=== PATIENT | female | born 1995 | race Caucasian/White ===

== ENCOUNTER 2021-09-27 01:04 | Emergency (ER) | payer OTHER, SELFPAY ==
[2021-09-27 01:10] VITALS: BP 117/74; PULSE 89; RESP 16; TEMP 36.7; O2SAT 97; BMI 28.5
--- NOTE | 2021-09-27 01:23 | ED.GENADULT ---
HPI - General Adult General Chief complaint: Vaginal Bleeding Stated complaint: bleeding vaginally positive preganancy test Time Seen by Provider: 09/27/21 01:10 History of Present Illness HPI narrative: Patient is a 26-year-old 3 para 2 woman who is 2 weeks late on her period. test at home today x2 was positive. She is current spotting Less than a pad an hour of red blood vaginally. She has minimal abdominal discomfort. She has had no vomiting no fevers. She has not passed any tissue. Bleeding has been present for the last several hours but very limited. Related Data Home Medications Medication Instructions Recorded Confirmed No Known Home Medications 09/27/21 09/27/21 Allergies Allergy/AdvReac Type Severity Reaction Status Date / Time hydrocodone AdvReac Mild Vomiting Verified 09/27/21 01:13 Review of Systems Status of ROS: Reports: 10 or more systems reviewed and unremarkable except as noted in History and below [facility] Medical History (Updated 09/27/21 @ 01:28 by Dave Coronel MD) Chronic anemia Depression TANNER (generalized anxiety disorder) Migraine Sacroiliac joint disease Surgical History (Updated 09/27/21 @ 01:15 by Jamison Springer RN) No significant past surgical history Social History Smoking Status: Current every day smoker What tobacco products do you use: cigarettes How often do you have a drink containing alcohol: never AUDIT-C Alcohol total score: 0 Non-prescribed substance use: denies use Exam Narrative: Exam Narrative: EXAM GENERAL: Patient appears comfortable and well. EYES: No scleral icterus. LYMPH: No supraclavicular or cervical lymphadenopathy. SKIN: Visible skin seen during exam normal or with benign process only. EXT: No dependent lower extremity pedal edema. HEART: Regular rate and rhythm with no murmurs, rubs, or gallops. LUNGS: Clear to auscultation bilaterally with no crackles or wheezes. ABD: Soft, non tender, non distended. PSYCH: Good eye contact, speech is not pressured. Const: Vital Signs, click to edit/add: Vital Signs - 24 hr 09/27/21 01:10 Temperature 98.1 F Pulse Rate [Right Pulse Oximeter] 89 Respiratory Rate 16 Blood Pressure [Ri ght Upper Arm] 117/74 Pulse Oximetry 97 Oxygen Delivery Me thod Room Air Course Course Hospital Course: Explained the nature of first-trimester vaginal bleeding. Vital Signs Vital signs: Initial Vital Signs Temperature 98.1 F 09/27/21 01:10 Temperature Source Temporal Artery Scan 09/27/21 01:10 Pulse Rate 89 09/27/21 01:10 Respiratory Rate 16 09/27/21 01:10 Blood Pressure 117/74 09/27/21 01:10 Blood Pressure Mean 88 09/27/21 01:10 Blood Pressure Position Sitting 09/27/21 01:10 Pulse Oximetry 97 09/27/21 01:10 Oxygen Delivery Method 09/27/21 01:10 Vital Signs Temperature 98.1 F 09/27/21 01:10 Pulse Rate 89 09/27/21 01:10 Respiratory Rate 16 09/27/21 01:10 Blood Pressure 117/74 09/27/21 01:10 Pulse Oximetry 97 09/27/21 01:10 Oxygen Delivery Method 09/27/21 01:10 Temperature 98.1 F 09/27/21 01:10 Pulse Rate 89 09/27/21 01:10 Respiratory Rate 16 09/27/21 01:10 Blood Pressure 117/74 09/27/21 01:10 Pulse Oximetry 97 09/27/21 01:10 Oxygen Delivery Method 09/27/21 01:10 Discharge Plan Discharge Clinical Impression: First trimester bleeding Patient Disposition: Home, Self-Care Condition: Stable Instructions: Non-Threatening First Trimester Vaginal Bleed (ED) Additional Instructions: vitamin Follow-up with OBGYN Return of believe becomes worse Activity Level: No Restrictions Discharge Diet: Regular Prescriptions: No Action No Known Home Medications Stand Alone Forms: [facility] Info Instructions
[2021-09-27 01:31] VITALS: BP 117/74; PULSE 89; RESP 16; TEMP 36.7; O2SAT 97
[2021-09-27 01:32] VITALS: BP 117/74; PULSE 89; RESP 16; TEMP 36.7
== END 2021-09-27 01:40 | disposition home or self-care (01) ==
LOC: ED 01:39
PROVIDERS: Emergency Provider Internal Medicine
DX: O20.9 Hemorrhage in early pregnancy, unspecified (principal)
CPT/HCPCS: 99283

== ENCOUNTER 2021-12-09 14:13 | Outpatient (CLI) | payer SELFPAY ==
[2021-12-09 18:15] LABS: HIV 1/2/P24 Combo Screen* Negative (Negative)
[2021-12-09 20:33] LABS: Amphetamine Screen Urine Negative (Negative); Barbiturate Screen Urine Negative (Negative); Benzodiazepines Screen Urine Negative (Negative); Cocaine Screen Urine Negative (Negative); Methadone Screen Urine Negative (Negative); Methamphetamines Screen Urine Negative (Negative); Opiate Screen Urine Negative (Negative); Oxycodone Screen Urine Negative (Negative); Phencyclidine Screen Urine Negative (Negative); Tricyclic Antidepressant Urine Negative (Negative)
[2021-12-09 20:41] LABS: Cannabinoid Screen Urine POSITIVE (Negative)
[2021-12-09 20:43] LABS: Hepatitis B Surface Antigen* Negative (Negative)
[2021-12-09 20:44] LABS: TSH With Reflex to FT4* 0.458 uIU/mL (0.270-4.200)
[2021-12-09 21:01] LABS: Hepatitis C Virus Antibody* Negative (Negative)
[2021-12-09 21:45] LABS: Chlamydia DNA Amplified* NOT DETECTED (No Detected); GC DNA Amplified* NOT DETECTED (No Detected)
[2021-12-12 00:54] LABS: Rapid Plasma Reagin (RPR) Non Reactive (Non Reactive)
[2021-12-12 03:04] LABS: Varicella-Zoster Virus Ab, IgG 32.3 IV
== END 2021-12-09 14:14 | disposition home or self-care (01) ==
PROVIDERS: Visit Provider Advanced Practice Midwife
DX: Z34.90 Encounter for supervision of normal pregnancy, unspecified, unspecified trimester (principal); Z12.4 Encounter for screening for malignant neoplasm of cervix; Z13.29 Encounter for screening for other suspected endocrine disorder
CPT/HCPCS: 76817; 80306; 84443; 86592; 86703; 86762; 86787; 86803; 86850; 86900; 86901; 87086; 87186; 87340; 87491; 87591; 87624; 88175

== ENCOUNTER 2022-01-06 15:27 | Outpatient (CLI) | payer SELFPAY | END 2022-01-06 15:28 | disposition home or self-care (01) | LOC: NFLDREF 15:28 | PROVIDERS: PCP Advanced Practice Midwife; Visit Provider Advanced Practice Midwife | DX: O23.42 Unspecified infection of urinary tract in pregnancy, second trimester (principal); Z3A.14 14 weeks gestation of pregnancy | CPT/HCPCS: 87077; 87086; 87186 ==

== ENCOUNTER 2022-02-17 13:44 | Outpatient (CLI) | payer SELFPAY ==
--- NOTE | 2022-02-17 14:00 | CRLHL7_ITS ---
For Patients: As a result of the Century Cures Act, medical imaging exams and procedure reports are released immediately into your electronic medical record. You may view this report before your referring provider. If you have questions, please contact your health care provider. INDICATION: Evaluate anatomy. COMPARISON: 12/09/2021 TECHNIQUE: Real time pandya scale imaging of the fetus was performed as well as color Doppler analysis of the umbilical vessels. FINDINGS: Sonographic imaging demonstrates a single living intrauterine gestation. Fetus demonstrates a regular cardiac rate of 152 beats per minute. Fetus has a vertex position. The placenta lies posteriorly without evidence of placenta previa. The edge of the placenta is located 6.1 cm from the internal cervical os. Amniotic fluid volume appears normal. Single deepest vertical pocket: 2.8 cm. The cervix is closed and measures 3.9 cm in length. The composite ultrasound gestational age is calculated at 20 weeks 4 days with an estimated sonographic due date of 07/03/2022. The estimated weight is 397 grams which lies at the 86th %. The following biometric measurements were obtained: Biparietal diameter: 4.7 cm/20 weeks 1 day 45th% Head circumference: 17.2 cm/19 weeks 6 days 21st% Abdominal circumference: 16.5 cm/21 weeks 4 days 83rd% Femur length: 3.5 cm/20 weeks 6 days 64th% The HC/AC ratio measures: 1.04 range (1.07-1.25) On anatomic survey, there is incomplete visualization of the brain structures due to position. The nose, lips, and facial profile appear normal. The thoracic and lumbar spine are well visualized and appear normal. Incomplete visualization of the cervical spine due to position. There is a normal four-chamber heart view and the left and right ventricular outflow tracts appear normal. The diaphragm and stomach appear normal. The kidneys and bladder also appear normal. There is a normal three-vessel cord and cord insertion site. The four extremities appear normal. IMPRESSION: Concordance of clinical and sonographic dating. Incomplete visualization of the brain structures and cervical spine due to position. Remainder of the anatomic survey is normal. Short-term follow-up recommended. Dictated by Jesus Stafford MD @ 02/18/2022 12:44:27 PM (Electronically Signed)
== END 2022-02-17 13:45 | disposition home or self-care (01) ==
LOC: US 13:46
PROVIDERS: PCP Advanced Practice Midwife; Visit Provider Advanced Practice Midwife
DX: Z34.82 Encounter for supervision of other normal pregnancy, second trimester (principal); Z3A.20 20 weeks gestation of pregnancy
CPT/HCPCS: 76805

== ENCOUNTER 2022-02-17 15:11 | Outpatient (CLI) | payer SELFPAY | END 2022-02-17 15:12 | disposition home or self-care (01) | PROVIDERS: PCP Advanced Practice Midwife; Visit Provider Advanced Practice Midwife | DX: R30.9 Painful micturition, unspecified (principal) | CPT/HCPCS: 87086; 87186 ==

== ENCOUNTER 2022-03-18 08:22 | Outpatient (CLI) | payer OTHER, SELFPAY ==
--- NOTE | 2022-03-18 08:15 | CRLHL7_ITS ---
For Patients: As a result of the Century Cures Act, medical imaging exams and procedure reports are released immediately into your electronic medical record. You may view this report before your referring provider. If you have questions, please contact your health care provider. INDICATION: Follow up anatomic survey. A previous ultrasound February 17, 2022 did not clearly demonstrate the intracranial structures or cervical spine. TECHNIQUE: Transabdominal obstetrical ultrasound. COMPARISON: February 17, 2022. FINDINGS: Single living intrauterine in vertex presentation. Posterior placenta. heart rate 142 beats per minute. Normal amniotic fluid. Single deepest pocket measurement 5.5 cm. The intracranial structures are within normal limits. The cervical spine is unremarkable. The four-chamber heart view is well demonstrated. A lateral facial profile view is within normal limits. IMPRESSION: Completion of the anatomic survey. No abnormalities identified. Dictated by Tigre Murray MD @ 03/18/2022 9:29:57 AM (Electronically Signed)
== END 2022-03-18 08:23 | disposition home or self-care (01) ==
LOC: US 08:24
PROVIDERS: PCP Advanced Practice Midwife; Visit Provider Advanced Practice Midwife
DX: Z34.92 Encounter for supervision of normal pregnancy, unspecified, second trimester (principal); Z3A.24 24 weeks gestation of pregnancy
CPT/HCPCS: 76816

== ENCOUNTER 2022-03-22 14:07 | Emergency (ER) | payer OTHER, SELFPAY ==
[2022-03-22 14:18] VITALS: BP 116/74; PULSE 83; RESP 16; TEMP 36.6; O2SAT 95; BMI 31.6
--- NOTE | 2022-03-22 14:45 | ED.NURSE ---
OB RN in room assessing pt and placing pt on monitoring.
--- NOTE | 2022-03-22 15:04 | ED.LOWEXIN ---
HPI - Extremity Injury (Lower) General Date Seen: 03/22/22 Chief Complaint: Extremity Pain/Injury, Lower Stated Complaint: Raised spot on right leg Time Seen by Provider: 03/22/22 14:11 Source: patient Mode of arrival: ambulatory Limitations: no limitations History of Present Illness HPI Narrative: Patient is 26-year-old female who is , she presents here with painful swelling on her right leg, on the manrique, just distal to her knee. She has been treated for UTI on and off, currently on Macrobid, is worried about a blood clot, so that is why she is here today. Denies a sore throat, no history of TB, no history of any other viral etiology, has not been on penicillin as far she knows recently. Denies any shortness of breath, denies any wheezing, denies any nausea vomiting diarrhea, she is having some discharge, although she tells me this is been a chronic problem with her . She continues to smoke during this , does use occasional alcohol. Related Data Previous Rx's Medication Instructions Recorded nitrofurantoin macrocrystal 50 mg 50 mg PO .HS #60 caps 02/17/22 capsule Lactobacillus acidophilus 1.5 mg 100 mmu cells PO QDAY #90 caps 03/18/22 (250 million cell) capsule Allergies Allergy/AdvReac Type Severity Reaction Status Date / Time hydrocodone AdvReac Mild Vomiting Verified 03/22/22 14:23 Review of Systems Status of ROS: Reports: 10 or more systems reviewed and unremarkable except as noted in History and below PFSH PFSH Medical History Depression TANNER (generalized anxiety disorder) History of hyperthyroidism Migraine Sacroiliac joint disease Teeth decayed Surgical History History of ankle surgery [place] teeth extracted Family History Father High blood pressure Stroke, Onset Age: 42 Mother High blood pressure Diabetes Thyroid disease Social History Smoking Status: Current every day smoker What tobacco products do you use: cigarettes Smoking packs per day: 0.5 Smoking cigarettes per day: 10.0 Years smoked: 10 Smoking pack-years: 5.00 Do you use any of these nicotine containing products: None Second hand tobacco smoke exposure: No How often do you have a drink containing alcohol: monthly or less AUDIT-C Alcohol total score: 1 Non-prescribed substance use details: Stopped Marijuana usage in November Little interest or pleasure in doing things: more than half the days Feeling down, depressed, or hopeless: several days Exam Narrative: Exam Narrative: On examination just below her right knee is an area of very slight redness and probably silver dollar size, on the upper part of her right manrique, consistent erythema nodusum, no swelling of her calf, no distal edema, no other symptoms. Pulses are normal neurologically intact.. Const: Vital Signs, click to edit/add: Vital Signs - 24 hr 03/22/22 14:18 Temperature 97.8 F Pulse Rate [Pulse Oximeter] 83 Respiratory Rate 16 Blood Pressure [Ri ght Upper Arm] 116/74 Pulse Oximetry 95 Oxygen Delivery Me thod Room Air Course Vital Signs Vital signs: Initial Vital Signs Temperature 97.8 F 03/22/22 14:18 Temperature Source Temporal Artery Scan 03/22/22 14:18 Pulse Rate 83 03/22/22 14:18 Respiratory Rate 16 03/22/22 14:18 Blood Pressure 116/74 03/22/22 14:18 Blood Pressure Mean 88 03/22/22 14:18 Blood Pressure Position Supine 03/22/22 14:18 Pulse Oximetry 95 03/22/22 14:18 Oxygen Delivery Method 03/22/22 14:18 Vital Signs Temperature 97.8 F 03/22/22 14:18 Pulse Rate 83 03/22/22 14:18 Respiratory Rate 16 03/22/22 14:18 Blood Pressure 116/74 03/22/22 14:18 Pulse Oximetry 95 03/22/22 14:18 Oxygen Delivery Method 03/22/22 14:18 Temperature 97.8 F 03/22/22 14:18 Pulse Rate 83 03/22/22 14:18 Respiratory Rate 16 03/22/22 14:18 Blood Pressure 116/74 03/22/22 14:18 Pulse Oximetry 95 03/22/22 14:18 Oxygen Delivery Method 03/22/22 14:18 MDM - Extremity Injury (Lower) MDM Narrative Medical decision making narrative: During this evaluation I considered multiple diagnosis, including DVT, superficial thrombophlebitis, cellulitis, eczema, HSP, varicella , among other causes of rashes. Medical Records Attestation: I reviewed the patient's medical records. Lab Data Attestation: I reviewed the patient's lab results. Lab results narrative: We will do a COVID swab, influenza, RSV and call her if positive Discharge Plan Discharge Clinical Impression: Erythema nodosum Patient Disposition: Home w/ Parent or Adult Condition: Stable Additional Instructions: Multiple reasons you can have this including recent UTI, and the medications that she take for UTI, bottom line is it is a hypersensitivity reaction, and improves with time. It is not a blood clot. Fits due to then he would usually persist throughout . That is unfortunate. A little Tylenol will help this, or follow-up with primary care for their options. I do recommend that she stop smoking, during . Avoidance of alcohol is also suggested We will call you if COVID test is positive. Prescriptions: No Action Probiotic Acidophilus 1.5 mg (250 million cell) capsule 100 mmu cells PO QDAY Qty: 90 3RF Hold Instructions: Pt Not Taking nitrofurantoin macrocrystal 50 mg capsule 50 mg PO .HS Qty: 60 1RF Rx Instructions: must administer with a meal/food; Start after completing 7 day course. Take before bed Follow Up/Referrals: Earline Tompkins CNM [Certified Nurse Community Assistant] - Stand Alone Forms: [facility] Info Instructions
[2022-03-22 15:35] LABS: PCR FLU A Negative PCR FLU A (Negative); PCR FLU B Negative PCR FLU B (Negative); PCR RSV Negative PCR RSV (Negative)
[2022-03-22 15:40] LABS: SARS PCR* Negative SARS-CoV-2 (Negative)
--- NOTE | 2022-03-22 15:46 | ED.NURSE ---
OB RN obtaining wet prep and brought to lab.
[2022-03-22 16:07] LABS: Clue Cells No Clue Cells Seen (None Seen); Trichomonas No Trichomonas Seen (None Seen)
[2022-03-22 16:08] LABS: Yeast Yeast Seen (None Seen)
--- NOTE | 2022-03-22 18:16 | ED.NURSE ---
Pt admits to drinking socially at this time. MD and OB RN updated.
== END 2022-03-22 15:47 | disposition home or self-care (01) ==
LOC: ED 15:02
PROVIDERS: Emergency Provider Family Medicine
DX: L52 Erythema nodosum (principal)
CPT/HCPCS: 87210; 87502; 87634; 87635; 99282; 99283

== ENCOUNTER 2022-04-17 13:56 | Outpatient (CLI) | payer OTHER, SELFPAY ==
[2022-04-19 09:58] LABS: Rapid Plasma Reagin (RPR) Non Reactive (Non Reactive)
== END 2022-04-17 13:57 | disposition home or self-care (01) ==
LOC: NFLDREF 13:56
PROVIDERS: Visit Provider Advanced Practice Midwife
DX: Z34.93 Encounter for supervision of normal pregnancy, unspecified, third trimester (principal); Z3A.28 28 weeks gestation of pregnancy
CPT/HCPCS: 86592

== ENCOUNTER 2022-05-28 14:45 | Outpatient (RCR) | payer OTHER, SELFPAY | END 2022-08-06 09:16 | disposition home or self-care (01) | PROVIDERS: PCP Advanced Practice Midwife; Visit Provider Advanced Practice Midwife | DX: Z34.90 Encounter for supervision of normal pregnancy, unspecified, unspecified trimester (principal); M54.30 Sciatica, unspecified side; Z51.89 Encounter for other specified aftercare | CPT/HCPCS: 97110; 97140; 97162 ==

== ENCOUNTER 2022-06-09 22:45 | Outpatient (CLI) | payer OTHER, SELFPAY ==
[2022-06-09 22:59] VITALS: BP 132/82; PULSE 85; RESP 20; TEMP 36.6; O2SAT 97
[2022-06-10 00:23] LABS: Appearance Urine Slightly Cloudy (Clear); Bilirubin Urine Negative (Negative); Blood Urine Trace-lysed (Negative); Color Urine Yellow (Yellow); Glucose Urine Negative (Negative); Ketones Urine Negative (Negative); Leukocyte Esterase Urine 2+ (Negative); Nitrite Urine Negative (Negative); Protein Urine Negative (Negative); Urobilinogen Urine 0.2 (0.2-1.0); pH Urine 6.5 (5.0-8.5)
[2022-06-10 00:41] LABS: Bacteria Urine Many; Squamous Epithelial Cell Urine Moderate (None-Few)
[2022-06-10 00:42] LABS: Amorphous Sediment Urine Few
--- NOTE | 2022-06-10 02:08 | PC.OBNST ---
NST Note NST Note Start: 06/09/22 22:52 Freq: ONCE Status: Active Protocol: Document 06/09/22 22:52 ARB (Rec: 06/10/22 01:49 ARB [id number]) NST Note 3 Para (# of births) 2 EDC 07/05/22 Gestational Age In Weeks & Days 36 Weeks & 3 Days Patient Presented with Complaint(s) of Decreased movement,Other Other Complaints diarrhea Reactive Yes Appropriate for Gestational Age Yes REAGAN Rivers, RN Date 06/10/22 Reactive Yes Appropriate for Gestational Age Yes REAGAN Sharma, RN Date 06/10/22 OB NST charge Yes Complete NST Note via Write Note Yes The provider's electronic signature indicates the NST is reactive/appropriate for gestational age. *Note to provider: If an addendum is required, open the patient's chart and click on the note under the Nurse/Allied Health tab.
--- NOTE | 2022-06-10 02:24 | PC.OBNST ---
NST Note NST Note Start: 06/09/22 22:52 Freq: ONCE Status: Active Protocol: Document 06/09/22 22:52 ARB (Rec: 06/10/22 01:49 ARB [id number]) NST Note 3 Para (# of births) 2 EDC 07/05/22 Gestational Age In Weeks & Days 36 Weeks & 3 Days Patient Presented with Complaint(s) of Decreased movement,Other Other Complaints diarrhea Reactive Yes Appropriate for Gestational Age Yes REAGAN Rivers, RN Date 06/10/22 Reactive Yes Appropriate for Gestational Age Yes REAGAN Sharma, RN Date 06/10/22 OB NST charge Yes Complete NST Note via Write Note Yes The provider's electronic signature indicates the NST is reactive/appropriate for gestational age. *Note to provider: If an addendum is required, open the patient's chart and click on the note under the Nurse/Allied Health tab.
== END 2022-06-10 01:30 | disposition home or self-care (01) ==
LOC: OB OUT 22:47 → OB 22:48
PROVIDERS: PCP Advanced Practice Midwife; Visit Provider Advanced Practice Midwife
DX: O36.8130 Decreased fetal movements, third trimester, not applicable or unspecified (principal); Z3A.36 36 weeks gestation of pregnancy
CPT/HCPCS: 59025; 81003; 81015; 87086; 87186; 99213

== ENCOUNTER 2022-06-12 10:42 | Outpatient (CLI) | payer OTHER, SELFPAY | END 2022-06-12 10:43 | disposition home or self-care (01) | LOC: NFLDREF 10:43 | PROVIDERS: PCP Advanced Practice Midwife; Visit Provider Advanced Practice Midwife | DX: Z34.93 Encounter for supervision of normal pregnancy, unspecified, third trimester (principal); Z3A.36 36 weeks gestation of pregnancy | CPT/HCPCS: 80306 ==

== ENCOUNTER 2022-06-19 12:48 | Outpatient (CLI) | payer OTHER, SELFPAY ==
--- NOTE | 2022-06-19 13:00 | CRLHL7_ITS ---
For Patients: As a result of the Cures Act, medical imaging exams and procedure reports are released immediately into your electronic medical record. You may view this report before your referring provider. If you have questions, please contact your health care provider. INDICATION: female measuring large for dates. Ultrasound for size/dates. TECHNIQUE: Transabdominal obstetrical ultrasound. COMPARISON: February 17, 2022. FINDINGS: Single living intrauterine in breech presentation. Posterior placenta. heart rate 134 beats per minute. Amniotic fluid volume is slightly increased. Single deepest pocket measurement 9.3 cm. Amniotic fluid volume index 23.1 cm. Biparietal diameter 9.5 cm, 39 weeks 0 days, 92nd percentile. Head circumference 34.1 cm, 39 weeks 2 days, 67th percentile. Abdominal circumference 38 cm, 42 weeks 0 days, greater than the 97th percentile. Femur length 7.7 cm, 39 weeks 1 day, 85th percentile. Composite calculated ultrasound age 39 weeks 6 days with a sonographic due date of June 20, 2022. This is advanced by 15 days when correlated with the age based on the last menstrual period provided. Estimated weight 4164 g which lies at the greater than 97th percentile. IMPRESSION: 1. Single living intrauterine in vertex presentation. Posterior placenta. 2. Composite calculated ultrasound age 39 weeks 6 days with a sonographic due date of June 20, 2022. This is advanced by 15 days when correlated with the age based on the last menstrual period provided. 3. Mild polyhydramnios. Single deepest pocket measurement 9.3 cm. 4. Estimated weight 4164 g which lies at the greater than 97th percentile. Dictated by Tigre Murray MD @ 06/19/2022 4:10:34 PM (Electronically Signed)
== END 2022-06-19 12:49 | disposition home or self-care (01) ==
LOC: US 12:49
PROVIDERS: PCP Advanced Practice Midwife; Visit Provider Advanced Practice Midwife
DX: O36.63X0 Maternal care for excessive fetal growth, third trimester, not applicable or unspecified (principal); Z3A.39 39 weeks gestation of pregnancy
CPT/HCPCS: 76816

== ENCOUNTER 2022-06-26 08:14 | Outpatient (CLI) | payer OTHER, SELFPAY ==
--- NOTE | 2022-06-26 08:15 | CRLHL7_ITS ---
For Patients: As a result of the Century Cures Act, medical imaging exams and procedure reports are released immediately into your electronic medical record. You may view this report before your referring provider. If you have questions, please contact your health care provider. INDICATION: Polyhydramnios COMPARISON: 06/19/2022 TECHNIQUE: Real time pandya scale imaging of the fetus was performed. Without non-stress testing. FINDINGS: Sonographic imaging demonstrates a single living intrauterine gestation. Fetus demonstrates a regular cardiac rate of 137 beats per minute. Fetus has a vertex position. The amniotic fluid volume appears upper limits of normal and there is a single deepest pocket measurement of 8.4 cm. ALEXANDER 23.4 cm. The fetus was active and demonstrated normal breathing movements. There was normal flexion and extension of the trunk and extremities. IMPRESSION: Normal biophysical profile score of 8 out of 8. Dictated by Jesus Stafford MD @ 06/26/2022 11:10:18 AM (Electronically Signed)
== END 2022-06-26 08:15 | disposition home or self-care (01) ==
LOC: US 08:15
PROVIDERS: PCP Advanced Practice Midwife; Visit Provider Advanced Practice Midwife
DX: O40.9XX0 Polyhydramnios, unspecified trimester, not applicable or unspecified (principal)
CPT/HCPCS: 76819

== ENCOUNTER 2022-06-29 07:03 | Inpatient (IN) | payer OTHER, SELFPAY ==
[2022-06-29] VITALS (16 sets, daily range): BP systolic 102–114; BP diastolic 63–79; PULSE 72–99; RESP 16–20; TEMP 36.6–37.4; O2SAT 96–97; BMI 36.8
[2022-06-29] MEDS: miSOPROStoL 25 MCG/0.25 TABLET VAGINAL ×2 (08:15→12:05)
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
[2022-06-29 08:40] LABS: Amphetamine Screen Urine Negative (Negative); Barbiturate Screen Urine Negative (Negative); Benzodiazepines Screen Urine Negative (Negative); Cannabinoid Screen Urine Negative (Negative); Cocaine Screen Urine Negative (Negative); Methadone Screen Urine Negative (Negative); Methamphetamines Screen Urine Negative (Negative); Opiate Screen Urine Negative (Negative); Oxycodone Screen Urine Negative (Negative); Phencyclidine Screen Urine Negative (Negative); Tricyclic Antidepressant Urine Negative (Negative)
[2022-06-29] MEDS: AMPICILLIN 2 GM in 0.9 % SODIUM CHLORIDE Mini-bag 100 ML IVPB (08:57)
[2022-06-29] MEDS: LACTATED RINGERS 1000 ML 1,000 ML 125 ML IV (08:59)
[2022-06-29 09:12] LABS: Basophils Absolute Auto 0.04 K/uL (0.00-0.30); Basophils Percent Auto 0.4 % (0.0-3.0); Eosinophils Absolute Auto 0.15 K/uL (0.00-0.50); Eosinophils Percent Auto 1.4 % (0.0-7.0); Hematocrit 32.2 % (33.0-51.0); Hemoglobin* 10.4 gm/dL (12.0-16.0); Immature Granulocytes Abs Auto 0.17 K/uL (0.00-0.30); Immature Granulocytes Pct Auto 1.6 %; Lymphocytes Percent Auto 17.7 % (20-44); Mean Corpuscular HGB Conc 32 gm/dL (32-36); Mean Corpuscular Hemoglobin 27 pg (26-34); Mean Corpuscular Volume 83 fL (80-100); Monocytes Percent Auto 6.3 % (0.0-11.0); Neutrophils Percent Auto 72.6 % (42.0-72.0); Platelet Count* 332 K/uL (140-440); RDW Coefficient of Variation % 14.5 % (11.5-15.5); Red Blood Count 3.87 m/uL (4.00-5.20); White Blood Count* 10.59 K/uL (4.50-11.00)
[2022-06-29 09:13] LABS: Slide Review Reflex No
[2022-06-29] MEDS: AMPICILLIN 1 GM in 0.9 % SODIUM CHLORIDE Mini-bag 100 ML IVPB (12:53)
--- NOTE | 2022-06-29 15:43 | P.OBPN_ITS ---
Subjective Date Seen: 06/29/22 Narrative: Thelma is a 27 yo at 39 1/7 weeks gestation, here for IOL for mild polyhydramnios based on SDP and suspected macrosomia. She is coping well with labor. She has had 2 doses of cytotec. She reports pain of 8/10 with contractions. Objective Exam: Objective: Constitutional: Alert and oriented x3, moderate distress, coping well Vital signs stable, see nurse documentation Abdomen: gravid, contractions palpate strong with contractions and soft between Cervix: 6-7 cm/90%/0 station/vertex Vital Signs: Last Vital Signs Temp 98.3 F 06/29/22 14:47 Pulse 91 06/29/22 15:40 Resp 18 06/29/22 14:47 BP 114/75 06/29/22 15:40 Pulse Ox 97 06/29/22 11:30 Pelvic Exam Dilation (cm): 6-7 Effacement (%): 90 Station: 0 Contractions Monitor mode: External Contraction Frequency: 2-7 Contraction pattern: Regular Contraction intensity: Strong/Firm Assessment Assessment: active labor Station: 0 Status: Category l Heart Rate Baseline: 145 Senior Care Variability: Moderate (6-25) Monitor Accelerations: Present Monitor Decelerations: None Plan Plan: ASSESSMENT:? 27 at 39 1/7 weeks gestation? complicated by:?Recurrent UTI on suppression antibiotics, THC use during (neg in 3rd trimester), varicella non immune, Significant mental health hx (anxiety, depression, PTSD), Migraines w/ Aura, Anemia, measuring large for dates, mild polyhydramnios based of SDP Labor type: Induced, Active labor? Category 1 FHR pattern.?? Labor complicated by: GBS +, hx of precipitous, mild poly? GBS negative? ? PLAN:? 1. Routine intrapartum cares as ordered. 2 doses of cytotec, continue with exp ectant management. 2. Monitoring per policy, continuous? 3. Planning unmedicated . Desires water . Consent signed. Hep C negative. Candidate for analgesia of choice if desired. UDS neg in 3rd trimester. 4. Patient encouraged to reposition and ambulate to promote physiologic labor and .?Baby is ballotable, recommended spinning babies and labor warm up to engage fetus in pelvis. 5. GBS prophylaxis initiated for GBS positive status. Will treat with antibiotics per protocol. Plan to start with onset of induction due to hx of precipitous labor. 6. Anticipate ?
[2022-06-29] MEDS: OXYTOCIN 30 unit/500 ML in NS 30 UNIT/500 ML BAG 300 UNIT IVPB (17:03)
[2022-06-29] MEDS: ACETAMINOPHEN 500 MG TABLET 1000 MG PO (17:18)
--- NOTE | 2022-06-29 18:13 | W.PM.OBVAGDE ---
OB Procedure Vag Delivery Mother Details Mother Details: The patient is a 27 year-old, 3, Para 2, admitted on 06/29/22 at 39 1/7 Days gestation for induction of labor for polyhydramnios based on SDP with normal ALEXANDER and suspected macrosomia. : 3 Para: 3 Weeks Gestation: 39.1 Additional Details Amniotic Membrane Status: SROM Amniotic Membrane Rupture Date: 06/29/22 Amniotic Membrane Rupture Time: 16:43 Amniotic Membrane Fluid Description: Clear Analgesia/Anesthesia Type: None Waterbirth: Yes Pitcoin: Yes ([facility] only) Intrapartal Events: Precipitous Labor <3 Hrs Induction Method: per misoprostol protocol Labor Onset: 15:29 Complete: 16:22 Pushin:22 Heart: heart rate remained reassuring throughout the 2nd stage, with moderate variability and accelerations present but unable to determine if decelerations were present due to non-continuous tracing related to pushing. Delivery Details Delivery Date: 06/29/22 Delivery Time: 16:48 Route of delivery: Gender: Female Viability: Alive; Heart Rate Present Position at Delivery: OA Delivery Details: Thelma was induced with two doses of labor then spontaneously labored. She progressed precipitously in active labor. SROM noted in the tub with pushing at 1643 with clear fluid. Patient was assumed complete with pushing at 1622. of a viable female at 1648 in semi-fowlers in the tub. Vertex delivered OA. No nuchal cord or shoulder. After delivery of head, maternal pushing effort was poor. CNM felt for shoulder which was easily palpated and was able to place her hand in the axillary of the anterior arm. Mother was instructed to push while CNM assisted with gentle traction with little movement. With CNM instruction, nurses assisted pulling mom's legs back into [place] and mother was instructed to push. This time with gentle traction delivery of the body was made. Total time from head to body was about 2 minutes, body dystocia likely due to poor maternal pushing effort and position. Baby was lifted from water and placed on mothers abdomen and stimulated. Cord was clamped and cut at > 5 minutes. APGARS were 7 at one minute and 8 at five minutes respectively. Mom was transferred from the tub to the bed for delivery of the placenta. Intact placenta with a 3 vessel cord delivered spontaneously at 1713. Fundus firm. 1st degree identified, no repair. QBL 325 cc + EBL 200 cc in the tub. Mother and baby stable; mother plans to breastfeed. Infant weight 10 lb 7 oz. Monitoring Analyst called after delivery to assess , small open area noted on the back of the scalp. Additional Details Shoulder Dystocia: No Placenta Delivery Time: 17:13 Placental Delivery Description: Spontaneous Procedure Done: Global Blood Loss: 525 Laceration: Perineal - 1st Degree (not repaired) Blood Loss Measurement Type: QBL (w/ EBL in tub) Bakri Used: No Cord Vessel Description: 3 Vessels Event Summary Status: Mother and were stable after delivery. Disposition: floor
[2022-06-29] MEDS: miSOPROStoL 800 MCG/4 TABLET PR (19:25)
[2022-06-29] MEDS: METHYLERGONOVINE MALEATE 0.2 MG/ML INJ IM (19:53)
[2022-06-29] MEDS: IBUPROFEN 600 MG TABLET PO (20:36)
[2022-06-30 02:05] VITALS: BP 104/72; PULSE 80; RESP 16; TEMP 36.7; O2SAT 96
[2022-06-30] MEDS: IBUPROFEN 600 MG TABLET PO ×3 (02:24→22:46)
[2022-06-30 05:34] VITALS: BP 108/74; PULSE 74; RESP 16; TEMP 36.6; O2SAT 96
[2022-06-30] MEDS: ACETAMINOPHEN 500 MG TABLET 1000 MG PO ×4 (05:41→18:47)
[2022-06-30 07:24] VITALS: BP 101/68; PULSE 76; RESP 16; TEMP 36.6; O2SAT 96
[2022-06-30 07:39] LABS: Hemoglobin* 9.2 gm/dL (12.0-16.0)
--- NOTE | 2022-06-30 07:44 | PM.OBDSVD1 ---
DS: Providers Provider Time Seen by Provider: 07:44 Date Seen: 06/30/22 Date of admission: 06/29/22 07:03 Primary care physician: Dee Gould CNM Admitting Clinician: Dee Gould CNM Consults: 06/29/22 08:23 Consult to Gear Machinist [CONS] Routine Comment: Reason for Consult:: Substance Abuse Screening Attending Physician on discharge: Dee Gould CNM Date of Discharge: 06/30/22 DS: Diagnosis Discharge Diagnosis (1) Normal spontaneous vaginal delivery: Status: Acute (2) hemorrhage: Status: Acute Problem details: QBL/EBL 1265 (3) Anemia affecting : Status: Acute (4) Lactating mother: Status: Acute Exam Narrative: Exam Narrative: VSS, afebrile GENERAL APPEARANCE: ?normal affect, alert, no distress MOOD: ?appropriate HEENT: normocephalic, neck supple, full ROM CHEST: ?Symmetrical chest wall movement. ?Normal respiratory effort. ?Clear to auscultation HEART: ?regular rate and rhythm ABDOMEN: ?soft, non-tender. Uterine fundus is firm, 1 fingerbreadth above Umbilicus, Midline and is appropriate for the stage of recovery. ?Bowel sounds present. PERINEUM: ?mild edema of the perineum, there is a 1st degree laceration that is healing well. EXTREMITIES: ?normal and trace edema Const: Vital Signs, click to edit/add: Vital Signs - 24 hr 06/29/22 08:13 06/29/22 08:13 06/29/22 11:30 Temperature 98.6 F Pulse Rate 92 Pulse Rate [Pulse Oximeter] Respiratory Rate 16 Blood Pressure 108/72 Blood Pressure [Le ft Arm] Pulse Oximetry 97 Oxygen Delivery Me thod 06/29/22 12:03 06/29/22 12:03 06/29/22 14:47 Temperature 98.4 F 98.3 F Pulse Rate 98 Pulse Rate [Pulse Oximeter] Respiratory Rate 16 18 Blood Pressure 105/72 Blood Pressure [Le ft Arm] Pulse Oximetry Oxygen Delivery Me thod 06/29/22 15:40 06/29/22 15:40 06/29/22 17:17 Temperature 98.3 F Pulse Rate 91 80 Pulse Rate [Pulse Oximeter] Respiratory Rate 20 Blood Pressure 114/75 110/79 Blood Pressure [Le ft Arm] Pulse Oximetry Oxygen Delivery Me thod 06/29/22 17:32 06/29/22 17:32 06/29/22 17:47 Temperature 97.8 F Pulse Rate 78 78 Pulse Rate [Pulse Oximeter] Respiratory Rate 18 Blood Pressure 104/74 106/75 Blood Pressure [Le ft Arm] Pulse Oximetry Oxygen Delivery Me thod 06/29/22 17:47 06/29/22 18:02 06/29/22 18:17 Temperature 98.6 F Pulse Rate 80 72 Pulse Rate [Pulse Oximeter] Respiratory Rate 18 Blood Pressure 107/65 102/63 Blood Pressure [Le ft Arm] Pulse Oximetry Oxygen Delivery Fl thod 06/29/22 18:32 06/29/22 18:47 06/29/22 18:47 Temperature 98.9 F Pulse Rate 73 76 Pulse Rate [Pulse Oximeter] Respiratory Rate Blood Pressure 108/76 107/72 Blood Pressure [Le ft Arm] P[facility]:02 06/29/22 19:02 06/29/22 20:58 Temperature 98.9 F Pulse Rate 75 79 Pulse Rate [Pulse Oximeter] Respiratory Rate 18 Blood Pressure 107/69 110/73 Blood Pressure [Le ft Arm] Pulse Oximetry 97 [facility] 22:41 06/30/22 02:05 06/30/22 05:34 Temperature 98.6 F 98.1 F 97.9 F Pulse Rate Pulse Rate [Pulse Oximeter] 86 80 74 Respiratory Rate 16 16 16 Blood Pressure Blood Pressure [Le ft Arm] 113/78 104/72 108/74 Pulse Oximetry 96 96 [facility] Room Air 06/30/22 07:24 Temperature 97.9 F Pulse Rate Pulse Rate [Pulse Oximeter] 76 Respiratory Rate 16 Blood Pressure Blood Pressure [Le ft Arm] 101/68 Pulse Oximetry 96 Oxygen Delivery Fl thod Room Air Documenting provider has reviewed patient's vital signs: yes OB - DS: Summary Hospital Course Hospital Course: Thelma is a 27 y.o. G 3 P 3 who was admitted to [facility] for IOL. ?She had an NVD that was complicated by a body dystocia and a PP hemorrhage. The patient feels well. ?The pain is well controlled with current medications. ?She has no new complaints. ?She is breast feeding and reports things are going well.? the patient has done well.? Vitals have been stable.? She has remained afebrile.? Has a good appetite, is tolerating a general diet. ?She is voiding without difficulty.? She is passing gas.? She is ambulating and denies any dizziness this morning. She does say she had some dizziness last night, and will notify the RN if she has any today.? Has Small amount of rubra lochia. She is planning condoms and partner vasectomy for prevention. Problems: Anemia. Hgb pending this am. Baby may need further evaluation for perales noted on it's head post delivery. plan: Discharge home with baby. Follow up in 2 weeks and 6 weeks. , may follow up with if needed Acute anemia, continue iron supplementation for 6 weeks. -awaiting hgb from post delivery, can consider IV iron if needed Peripartum Data Infant delivery method: Vaginal Laceration description: Perineal - 1st Degree complications: other (PP hemorrhage) Infant Gender: Female Discharge Plan: Home Status at Discharge Functional status at discharge: independent ambulation Overall status at discharge: patient is progressing back to baseline Time Spent with Patient Time attestation: Total time spent providing and/or coordinating discharge services: Time spent: Less than 30 minutes Discharge Plan Discharge Disposition: Home, Self-Care Date of Admission: 06/29/22 07:03 Attending Provider on Discharge: Earline Tompkins Primary Care Provider: Dee Gould Condition: Stable Anticipated Discharge Date/Time: 06/30/22 18:00 Discharge Medications: New docusate sodium 100 mg Capsule 100 mg PO BID PRNQty: 100 0RF Rx Instructions: Take 1 cap 1-2 times a day as needed for constipation ibuprofen 600 mg Tablet 600 mg PO Q6H PRNQty: 60 0RF Continued Probiotic Pearls Women's 1 billion cell capsule,delayed release(DR/EC) 1 cap PO .QD Qty: 90 3RF cephalexin 250 mg capsule 250 mg PO QHS Qty: 30 0RF ferrous sulfate [Feosol] 325 mg (65 mg iron) tablet 325 mg PO QDAY No Action (DME) compress.stocking,knee,reg,med Misc See Rx Instructions .Route Qty: 2 0RF Rx Instructions: As directed Discharge Orders: Discharge Order (Routine); Ordered 06/30/22 Ordered By: Earline Tompkins Patient Education: OB Over the Counter Medication Information, OB Vaginal/Breast Feeding Additional Instructions: Continue iron supplementation for the next 6 weeks. Activity Level: Activity as Tolerated Discharge Diet: Regular Follow Up Appointments: Dee Gould CNM [Primary Care Provider] - Forms: [facility] Info Instructions
[2022-06-30 12:00] VITALS: BP 105/71; PULSE 90; RESP 16; TEMP 37.1; O2SAT 96
[2022-06-30] MEDS: DOCUSATE SODIUM 100 MG CAPSULE PO (12:25)
[2022-06-30 16:00] VITALS: BP 113/77; PULSE 81; RESP 16; TEMP 37.2; O2SAT 99
[2022-06-30 20:08] VITALS: BP 105/72; PULSE 87; RESP 16; TEMP 36.9; O2SAT 95
[2022-07-01 03:55] VITALS: BP 110/68; PULSE 71; RESP 16; TEMP 36.8; O2SAT 96
[2022-07-01] MEDS: IBUPROFEN 600 MG TABLET PO (04:55)
[2022-07-01 07:55] VITALS: BP 103/70; PULSE 81; RESP 16; TEMP 36.7; O2SAT 97
[2022-07-01] MEDS: DOCUSATE SODIUM 100 MG CAPSULE PO (08:03)
--- NOTE | 2022-07-01 08:29 | P.DS_ITS ---
DS: Providers Provider Date Seen: 07/01/22 Date of admission: 06/29/22 07:03 Primary care physician: Dee Gould CNM Admitting Clinician: Dee Gould CNM Consults: 06/29/22 08:23 Consult to Shipping And Receiving Associate [CONS] Routine Comment: Reason for Consult:: Substance Abuse Screening Attending Physician on discharge: Dee Gould CNM Date of Discharge: 07/01/22 DS: Diagnosis Discharge Diagnosis (1) Lactating mother: Status: Acute (2) care following vaginal delivery: Status: Acute (3) anemia: Status: Acute Exam Narrative: Exam Narrative: GENERAL APPEARANCE:? normal affect, alert, no distress? MOOD:? appropriate? CHEST:? clear to auscultation and percussion? HEART:? regular rate and rhythm? ABDOMEN:? soft, non-tender the uterine fundus is 2 cm Below Umbilicus, Midline and is appropriate for the stage of recovery. ? PERINEUM:? mild edema of the perineum, there is a 1st degree that is healing well.? EXTREMITIES:? normal and no edema? Patient has no complaints? No active bleeding?? Doing well? She is requesting discharge home.? Const: Vital Signs, click to edit/add: Vital Signs - 24 hr 06/30/22 12:00 06/30/22 16:00 06/30/22 20:08 Temperature 98.8 F 99 F 98.4 F Pulse Rate [Pulse Oximeter] 90 81 87 Respiratory Rate 16 16 16 Blood Pressure [Le ft Arm] 105/71 113/77 105/72 Pulse Oximetry 96 99 95 Oxygen Delivery Me thod Room Air Room Air Room Air 07/01/22 03:55 07/01/22 07:55 Temperature 98.2 F 98.0 F Pulse Rate [Pulse Oximeter] 71 81 Respiratory Rate 16 16 Blood Pressure [Le ft Arm] 110/68 103/70 Pulse Oximetry 96 97 Oxygen Delivery Me thod Room Air Room Air OB - DS: Summary Hospital Course Hospital Course: Patient is a 27year old, G 3 now P 3? admitted on 06/29/22 at 39 Weeks, 1 Days gestation for IOL.? She had an uncomplicated vaginal delivery.? She delivered a viable female .? She is breast feeding and reports things are well.? the patient has done well.? Her pain is well controlled with current medications.? She has no new complaints.? Vitals have been stable. She has remained afebrile. She is voiding without difficulty. She is passing gas and has not had a bowel movement. She is ambulating and denies any dizziness. She is planning partner vasectomy for control. Unsure what she will do until vasectomy is complete. Considering Nexplanon or an IUD.?She does have a history of anxiety and depression. She has not been on any medications during . She declines restarting at this time but is aware to be seen at any time if her anxiety or depression increase and she would like to restart medications. ?? Peripartum Data Infant delivery method: Vaginal Laceration description: Perineal - 1st Degree Episiotomy description: None complications: none Infant Gender: Female Infant Discharge Plan: Home Status at Discharge Functional status at discharge: independent ambulation Overall status at discharge: patient is progressing back to baseline Time Spent with Patient Time attestation: Total time spent providing and/or coordinating discharge services: Discharge Plan Discharge Disposition: Home, Self-Care Date of Admission: 06/29/22 07:03 Attending Provider on Discharge: Jessenia Ortez Primary Care Provider: Dee Gould Condition: Stable Anticipated Discharge Date/Time: 06/30/22 18:00 Discharge Medications: New docusate sodium 100 mg Capsule 100 mg PO BID PRNQty: 100 0RF Rx Instructions: Take 1 cap 1-2 times a day as needed for constipation ibuprofen 600 mg Tablet 600 mg PO Q6H PRNQty: 60 0RF Continued Probiotic Pearls Women's 1 billion cell capsule,delayed release(DR/EC) 1 cap PO .QD Qty: 90 3RF cephalexin 250 mg capsule 250 mg PO QHS Qty: 30 0RF ferrous sulfate [Feosol] 325 mg (65 mg iron) tablet 325 mg PO QDAY No Action (DME) compress.stocking,knee,reg,med Misc See Rx Instructions .Route Qty: 2 0RF Rx Instructions: As directed Discharge Orders: Discharge Order (Routine); Ordered 07/01/22 Ordered By: Jessenia Ortez Consulting provider completed their portion of the discharge: Yes Patient Education: OB Over the Counter Medication Information, OB Vaginal/Breast Feeding Additional Instructions: Continue iron supplementation for the next 6 weeks. Activity Level: Activity as Tolerated Discharge Diet: Regular Follow Up Appointments: Dee Gould CNM [Primary Care Provider] - Forms: [facility] Info Instructions
== END 2022-07-01 10:29 | disposition home or self-care (01) | DRG 806 ==
PROVIDERS: Admitting Provider Advanced Practice Midwife; PCP Advanced Practice Midwife; Visit Provider Advanced Practice Midwife
DX: O40.3XX0 Polyhydramnios, third trimester, not applicable or unspecified (principal); D62 Acute posthemorrhagic anemia; Z37.0 Single live birth; O72.1 Other immediate postpartum hemorrhage; O99.324 Drug use complicating childbirth; O66.2 Obstructed labor due to unusually large fetus; O36.63X0 Maternal care for excessive fetal growth, third trimester, not applicable or unspecified; O99.824 Streptococcus B carrier state complicating childbirth; O70.0 First degree perineal laceration during delivery; O99.02 Anemia complicating childbirth; O99.344 Other mental disorders complicating childbirth; F12.91 Cannabis use, unspecified, in remission; F41.9 Anxiety disorder, unspecified; F32.A Depression, unspecified; F43.10 Post-traumatic stress disorder, unspecified; Z62.810 Personal history of physical and sexual abuse in childhood; O99.334 Smoking (tobacco) complicating childbirth; F17.210 Nicotine dependence, cigarettes, uncomplicated; Z87.440 Personal history of urinary (tract) infections; Z28.39 Other underimmunization status; G43.109 Migraine with aura, not intractable, without status migrainosus; Z3A.39 39 weeks gestation of pregnancy
CPT/HCPCS: 36415; 59200; 76815; 80306; 85018; 85025; 86850; 86900; 86901; A9270; J0290; J2210; J7120

== ENCOUNTER 2022-11-30 12:31 | Emergency (ER) | payer OTHER, SELFPAY ==
[2022-11-30 12:38] VITALS: BP 114/80; PULSE 84; RESP 18; TEMP 36.6; BMI 36.1
--- NOTE | 2022-11-30 12:58 | CRLHL7_ITS ---
For Patients: As a result of the Century Cures Act, medical imaging exams and procedure reports are released immediately into your electronic medical record. You may view this report before your referring provider. If you have questions, please contact your health care provider. INDICATION: Lower abdominal and back pain COMPARISON: None. TECHNIQUE: CT of the abdomen and pelvis after the administration of intravenous contrast. Multiplanar axial, coronal, and sagittal reformats were reconstructed. Contrast: 99 mL Isovue 370 intravenously. Oral contrast was not administered. FINDINGS: Lung bases: Normal. Liver: Normal. No masses. Normal vasculature. Gallbladder and biliary tree: Normal gallbladder. No biliary duct dilation. Pancreas: Normal. Spleen: Scattered calcified splenic granuloma. Normal size. Adrenal glands: Normal. No nodules. Kidneys and bladder: Normal size and position. No cyst or mass. No calculi. No urinary tract dilation. The urinary bladder is normal. GI: Normal. No dilated segments. No abnormal bowel wall thickening or hyperenhancement. Moderate right colon stool burden. The appendix is not discretely seen. Vessels: Aorta and major branches, including the mesenteric vessels: Patent. Normal caliber. No atherosclerotic plaques. IVC and tributaries: Normal. Mesenteric and portal veins: Normal. Peritoneum: No free fluid. Lymph nodes: No adenopathy. Pelvis: Physiologic appearance of the reproductive organs. Bones: No fractures. No focal bone lesions. Normal for age. IMPRESSION: Normal CT of the abdomen and pelvis. Please note that all CT scans at this facility use dose modulation, iterative reconstruction, and/or weight-based dosing when appropriate to reduce radiation dose to as low as reasonably achievable. Dictated by Dee Willson MD @ 11/30/2022 3:28:26 PM (Electronically Signed)
--- NOTE | 2022-11-30 13:00 | ED_ITS ---
HPI - General Adult General Chief complaint: Back Injury/Pain Stated complaint: Lower back/abdominal pain Time Seen by Provider: 11/30/22 12:45 History of Present Illness HPI narrative: This 27-year-old female comes in reporting back pain and abdominal pain that started 4 days ago. She states that it is constant. It seems to be worse with movement. She has had urinary tract infections in the past but states that she does not have any symptoms of dysuria currently. She is also had some sciatica in the past but states that this feels different. She does not report any fevers. She does not have any problem taking food and drink. She does not report any recent strenuous activity or injury event. Related Data Previous Rx's Medication Instructions Recorded compress.stocking,knee,reg,med #2 ea 04/17/22 ibuprofen 600 mg tablet 600 mg PO Q6H PRN #60 tabs 06/30/22 escitalopram oxalate 5 mg tablet 5 mg PO QDAY #60 tabs 07/17/22 (Lexapro) ketorolac 10 mg tablet 10 mg PO Q8H 5 days #15 tabs 11/30/22 methylprednisolone 4 mg tablets in See Rx Instructions PO .COMPLEX 11/30/22 a dose pack (Medrol (Doroteo)) #21 ea Allergies Allergy/AdvReac Type Severity Reaction Status Date / Time hydrocodone AdvReac Mild Vomiting Verified 11/30/22 14:47 Review of Systems Status of ROS: Reports: 10 or more systems reviewed and unremarkable except as noted in History and below Narrative: Constitutional: No fevers, no weight gain or loss. Eyes: No discharge. No vision changes. HENT: No congestion, no sore throat, no ear pain. Cardiovascular: No chest pain, no palpitations. Respiratory: No shortness of breath, no wheezes, no cough. Gastrointestinal: No vomiting, no diarrhea. Lower abdominal pain as described above. Genitourinary: No dysuria, no hematuria. Musculoskeletal: Normal range of motion. Skin: No rashes, no pruritis. Neurological: No dizziness, weakness, sensory change, speech change. Endo/Heme/Allergies: No bruising or bleeding. No polydipsia. Pysch: no suicidality, no anxiety, no insomnia. All other systems reviewed and are negative. [facility] Medical History (Updated 11/30/22 @ 15:58 by Rakesh Satnana MD) hemorrhage ?O72.1 - Other immediate hemorrhage (ICD-10) Normal spontaneous vaginal delivery ?O80 - Encounter for full-term uncomplicated delivery (ICD-10) History of hyperthyroidism ?Z86.39 - Personal history of other endocrine, nutritional and metabolic disease (ICD-10) Teeth decayed ?K02.9 - Dental caries, unspecified (ICD-10) Migraine ?G43.909 - Migraine, unspecified, not intractable, without status migrainosus (ICD-10) Depression ?F32.A - Depression, unspecified (ICD-10) TANNER (generalized anxiety disorder) ?F41.1 - Generalized anxiety disorder (ICD-10) Sacroiliac joint disease ?M53.3 - Sacrococcygeal disorders, not elsewhere classified (ICD-10) Surgical History [place] teeth extracted ?K08.409 - Partial loss of teeth, unspecified cause, unspecified class (ICD- 10) History of ankle surgery ?Z98.890 - Other specified postprocedural states (ICD-10) Family History Father High blood pressure Stroke, Onset Age: 42 Mother High blood pressure Diabetes Thyroid disease Social History Smoking Status: Never smoker Do you use any of these nicotine containing products: None Second hand tobacco smoke exposure: No How often do you have a drink containing alcohol: monthly or less AUDIT-C Alcohol total score: 1 Non-prescribed substance use: former substance user Non-prescribed substance use details: Stopped Marijuana usage in November Little interest or pleasure in doing things: more than half the days Feeling down, depressed, or hopeless: several days Exam Narrative: Exam Narrative: Constitutional: Well-developed, well-nourished, no acute distress. HEENT: Normocephalic, atraumatic. Neck: Normal range of motion. Nontender. Supple. Heart: Regular. No murmurs. Normal rate. Intact distal pulses. Lungs: Clear to auscultation. No chest discomfort. No wheezes, rhonchi, or rales. Abdomen: Normal bowel sounds. Diffuse tenderness in the lower abdomen. No rebound tenderness. Genitalia: Deferred. Back: No midline tenderness. Normal range of motion. Extremities: Normal range of motion. No injury. Skin: Intact. No rash. Warm. No erythema or pallor. Neurologic: No altered sensation. No weakness. Alert and oriented. Psychiatric: No suicidality. No anxiety or depression. No insomnia. Nursing notes and vitals signs are reviewed. Const: Vital Signs, click to edit/add: Vital Signs - 24 hr 11/30/22 12:38 Temperature 97.9 F Pulse Rate [Right Pulse Oximeter] 84 Respiratory Rate 18 Blood Pressure [Ri ght Upper Arm] 114/80 Oxygen Delivery Me thod Room Air Course Vital Signs Vital signs: Initial Vital Signs Temperature 97.9 F 11/30/22 12:38 Temperature Source Temporal Artery Scan 11/30/22 12:38 Pulse Rate 84 11/30/22 12:38 Respiratory Rate 18 11/30/22 12:38 Blood Pressure 114/80 11/30/22 12:38 Blood Pressure Mean 91 11/30/22 12:38 Blood Pressure Position Sitting 11/30/22 12:38 Oxygen Delivery Method Room Air 11/30/22 12:38 Vital Signs Temperature 97.9 F 11/30/22 12:38 Pulse Rate 84 11/30/22 12:38 Respiratory Rate 18 11/30/22 12:38 Blood Pressure 114/80 11/30/22 12:38 Oxygen Delivery Method Room Air 11/30/22 12:38 Temperature 97.9 F 11/30/22 12:38 Pulse Rate 84 11/30/22 12:38 Respiratory Rate 18 11/30/22 12:38 Blood Pressure 114/80 11/30/22 12:38 Oxygen Delivery Method Room Air 11/30/22 12:38 Medical Decision Making MDM Narrative Medical decision making narrative: This patient comes in with some back pain and abdominal pain as described above. She arrives with normal vital signs. She does not have any symptoms of dysuria. An IV was established and labs are acquired which returned with reassuring findings. Additionally CT imaging of the abdomen and pelvis shows no abnormalities to explain her symptoms. Additionally her urine is not showing sign of infection. It seems that these symptoms are more likely musculoskeletal and or nerve impingement mediated. The patient was reassured with these findings. She did received prescription for Medrol Dosepak and Toradol. Lab Data Labs: Lab Results 11/30/22 11/30/22 Range/Units 12:58 13:10 WBC 9.98 (4.50-11.00) K/uL RBC 4.23 (4.00-5.20) m/uL Hgb 12.4 (12.0-16.0) gm/dL Hct 37.7 (33.0-51.0) % MCV 89 (80-100) fL MCH 29 (26-34) pg MCHC 33 (32-36) gm/dL RDW Coeff of Melissa 14.0 (11.5-15.5) % Plt Count 305 (140-440) K/uL Neut % (Auto) 64.2 (42.0-72.0) % Lymph % (Auto) 26.9 (20-44) % [place] % (Auto) 6.2 (0.0-11.0) % Eos % (Auto) 2.0 (0.0-7.0) % Baso % (Auto) 0.2 (0.0-3.0) % Neut # (Auto) 6.41 (1.7-7.0) K/uL Lymph # (Auto) 2.68 (0.90-2.90) K/uL [place] # (Auto) 0.60 (0.00-0.90) K/UL Eos # (Auto) 0.20 (0.00-0.50) K/uL Baso # (Auto) 0.02 (0.00-0.30) K/uL Abs Immat Gran (auto) 0.05 (0.00-0.30) K/uL Imm/Tot Granulo (auto) 0.5 % Sodium 140 (135-149) mmol/L Potassium 4.3 (3.6-5.1) mmol/L Chloride 105 (96-114) mmol/L Carbon Dioxide 24 (20-32) mmol/L Anion Gap 11 (7-15) mEq/L BUN 17 (5-24) mg/dL Creatinine 0.6 (0.5-1.5) mg/dL Estimated Creat Clear 124.49 Estimated GFR 125 ml/min Glucose 92 (60-115) mg/dL Calcium 9.4 (8.4-10.6) mg/dL HCG, Qual Negative (Negative) Urine Color Yellow (Yellow) Urine Appearance Cloudy A (Clear) Urine pH 7.5 (5.0-8.5) Ur Specific [place] 1.015 (1.000-1.030) Urine Protein Negative (Negative) Urine Glucose (UA) Negative (Negative) Urine Ketones Negative (Negative) Urine Blood Trace-lysed A (Negative) Urine Nitrite Negative (Negative) Urine Bilirubin Negative (Negative) Urine Urobilinogen 0.2 (0.2-1.0) Ur Leukocyte Esterase Trace A (Negative) Urine RBC 0-2 (0-2) Urine WBC 0-2 (0-5) Ur Squamous Epith Cells Few (None-Few) Amorphous Sediment Few A (None) Other Sediment 0 (None) Urine Bacteria Many A (None) Discharge Plan Discharge Clinical Impression: Back pain Patient Disposition: Home, Self-Care Condition: Stable Additional Instructions: Take medication as needed and indicated. Follow up with MD or return if worsening. Prescriptions: New ketorolac 10 mg tablet 10 mg PO Q8H 5 Days Qty: 15 0RF methylprednisolone [Medrol (Doroteo)] 4 mg tablets,dose pack See Rx Instructions .ROUTE .COMPLEX Qty: 21 0RF Rx Instructions: orally per package directions No Action (DME) compress.stocking,knee,reg,med Misc See Rx Instructions .Route Qty: 2 0RF Rx Instructions: As directed escitalopram oxalate [Lexapro] 5 mg tablet 5 mg PO QDAY Qty: 60 0RF Rx Instructions: May increase to 10 mg after 7-10 days as needed. ibuprofen 600 mg Tablet 600 mg PO Q6H PRNQty: 60 0RF Follow Up/Referrals: Dee Gould CNM [Certified Nurse Investigation Division Lieutenant] - Stand Alone Forms: [facility]
[2022-11-30 13:18] LABS: Basophils Absolute Auto 0.02 K/uL (0.00-0.30); Basophils Percent Auto 0.2 % (0.0-3.0); Hematocrit 37.7 % (33.0-51.0); Hemoglobin* 12.4 gm/dL (12.0-16.0); Immature Granulocytes Abs Auto 0.05 K/uL (0.00-0.30); Immature Granulocytes Pct Auto 0.5 %; Lymphocytes Absolute Auto 2.68 K/uL (0.90-2.90); Lymphocytes Percent Auto 26.9 % (20-44); Mean Corpuscular HGB Conc 33 gm/dL (32-36); Mean Corpuscular Hemoglobin 29 pg (26-34); Mean Corpuscular Volume 89 fL (80-100); Monocytes Percent Auto 6.2 % (0.0-11.0); Neutrophils Absolute Auto 6.41 K/uL (1.7-7.0); Neutrophils Percent Auto 64.2 % (42.0-72.0); Platelet Count* 305 K/uL (140-440); Red Blood Count 4.23 m/uL (4.00-5.20); White Blood Count* 9.98 K/uL (4.50-11.00)
[2022-11-30 13:19] LABS: Slide Review Reflex No
[2022-11-30 13:32] LABS: Chloride* 105 mmol/L (96-114)
[2022-11-30 13:33] LABS: Potassium* 4.3 mmol/L (3.6-5.1); Sodium* 140 mmol/L (135-149)
[2022-11-30 13:35] LABS: Creatinine* 0.6 mg/dL (0.5-1.5); Est. Creatinine Clearance* 124.49; Estimated Glomerular Filt Rate 125 ml/min
[2022-11-30 13:36] LABS: Anion Gap 11 mEq/L (7-15); Blood Urea Nitrogen* 17 mg/dL (5-24); Calcium* 9.4 mg/dL (8.4-10.6); Carbon Dioxide* 24 mmol/L (20-32); Glucose* 92 mg/dL (60-115)
[2022-11-30 13:41] LABS: HCG Qualitative Serum* Negative (Negative)
[2022-11-30 14:24] LABS: Appearance Urine Cloudy (Clear); Bilirubin Urine Negative (Negative); Blood Urine Trace-lysed (Negative); Color Urine Yellow (Yellow); Glucose Urine Negative (Negative); Ketones Urine Negative (Negative); Leukocyte Esterase Urine Trace (Negative); Nitrite Urine Negative (Negative); Protein Urine Negative (Negative); Specific Gravity Urine 1.015 (1.000-1.030); Urobilinogen Urine 0.2 (0.2-1.0); pH Urine 7.5 (5.0-8.5)
[2022-11-30 14:36] LABS: Amorphous Sediment Urine Few; Bacteria Urine Many; Other Sediment Urine 0; RBC Urine 0-2 (0-2); Squamous Epithelial Cell Urine Few (None-Few); WBC Urine 0-2 (0-5)
--- NOTE | 2022-11-30 16:41 | ED.NURSE ---
Pt's wallet was found in ER cart upon cleaning the room. Pt called and notified. Her , Tip Porter, will be coming to meat pickler. Wallet labeled with patient sticker and placed at senior front end developer.
== END 2022-11-30 16:09 | disposition home or self-care (01) ==
PROVIDERS: Emergency Provider Emergency Medicine Emergency Medical Services
DX: M54.50 Low back pain, unspecified (principal)
CPT/HCPCS: 36415; 74177; 80048; 81001; 84703; 85025; 87086; 87186; 99283; 99284; Q9967

== ENCOUNTER 2023-03-22 07:43 | Emergency (ER) | payer OTHER, SELFPAY ==
[2023-03-22 07:51] VITALS: BP 139/79; PULSE 67; RESP 18; TEMP 36.7; O2SAT 97; BMI 34.4
[2023-03-22 08:08] LABS: Appearance Urine Cloudy (Clear); Bilirubin Urine Negative (Negative); Blood Urine 2+ (Negative); Color Urine Yellow (Yellow); Glucose Urine Negative (Negative); Ketones Urine Negative (Negative); Leukocyte Esterase Urine Trace (Negative); Nitrite Urine Negative (Negative); Protein Urine Negative (Negative); Urobilinogen Urine 0.2 (0.2-1.0)
[2023-03-22 08:16] LABS: Bacteria Urine Many; Squamous Epithelial Cell Urine Moderate (None-Few)
--- OUTSIDE RECORDS SUMMARY | 2023-03-22 08:19 | XMS_ITS | Clinical Summary ---
Author Name Unknown Organization [facility] Address [address] [place] [address] Care Team Providers Care R&D Lab Technician Name Role Phone None Reported, Pcp Primary Care Provider Unavail able Source Comments Patient records contain information from all sites at [facility]. For routine questions regarding patient records, call [phone] during business hours, M-F 8:00 AM - 5:00 PM Central Time. Record requests for emergency care only can be directed to [phone] at any time.[facility] Allergies Active Allergy Reactions Criticality Noted Date Comments Hydrocodone-Acetaminophen Nausea Only Low 1 Medications No known medications Active Problems Problem Noted Date Diagnosed Date Cannabis Use Unspecified Uncomplicated 1 Anemia 10/23/2020 Sacrococcygeal Disorders Not Elsewhere Classifie d 07/01/2017 Nausea 02/18/2014 Other Specified Abnormal Findings Of Blood Chemi stry 02/18/2014 Menorrhagia 09/15/2012 Menstrual Irregularity 09/15/2012 Tension Type Headache Unspecified Not Intractabl e 09/15/2012 Pain Right Ankle And Joints Right Foot 3 Anxiety Generalized Disorder 07/09/2011 Depression Major 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 07/09/2011 [facility] Migraine Headache 03/05/2008 Immunizations Name Administration Dates Next Due 4vHPV (discontinued) 01/03/2013,11/04/2012,08/13 DTP / Hib 10/09/1994,03/10/1994,01/06/1994 DTaP (Infanrix, Tripedia) 10/17/1998 HepA Adult 02/02/2013,08/14/2011 HepB, Unspecified 10/09/1994,03/10/1994,01/06/19 94 Influenza TIV (IM) 11/04/2012 Influenza, Unspecified 11/02/2017 MCV4 (Menactra) 09/26/2004 MCV4 (Menveo) 02/16/2014 MMR 10/17/1998,10/09/1994 PPSV23 01/14/2021 Td Preservative Free (TENIVAC, DECAVAC) 11/03/19 17 Tdap 12/28/2018,07/01/2017,10/05/2006 influenza vaccine quad (FLUZ ONE/FLUARIX) (6 months and older)(PF) 11/02/2017 Social History Tobacco Use Types Packs/Day Years Used Date Smoking Tobacco: Every Day Cigarettes Tobacco Cessation:Ready to Q uit: Not Asked; Counseling Given: Not Answered Nutrition Answer Date Recorded Nutrition: EVOO Fat Source Unknown 01/24 Nutrition: Servings of Fruits/Vegetables per Day Not on file 01/24/2022 Dental Answer Date Recorded Dental: Regular Dentist Unknown 01/25/20 Sex and Gender Information Value Date Recorded Sex Assigned at Not on file Gender Identity Not on file Sexual Orientation Not on file Last Filed Vital Signs Vital Sign Reading Time Taken Comments Blood Pressure 96/60 01/24/2022 12:45 PM COAL WHEELER Pulse 75 01/24/2022 1:00 PM COAL WHEELER Temperature 36.6 ??C (97.9 ??F) 01/24/2022 11:[address] Respiratory Rate 18 01/24/2022 11:15 AM COAL WHEELER Oxygen Saturation 98% 01/24/2022 1:00 PM COAL WHEELER Inhaled Oxygen Concentration - - Weight 80.3 kg (177 lb 0.5 oz) 01/24/2022 11:11 AM COAL WHEELER Height - - Body Mass Index - - Plan of Treatment Health Maintenance Due Date Last Done Comments Depression Monitoring (PHQ-9) 1993 HIV Screening 1993 Hepatitis C Screening 1993 Tobacco Cessation counseling 1993 HPV Vaccines (3 - 3-dose series) 03/28/2013 01/03/2013, 11/04/2012, 08/14/2011 Pneumococcal vaccine (0-64 y ears) (2 of 2 - PCV) 01/14/2022 01/14/2021 COVID-19 Vaccine (3 - 2022-2 4 season) 2022 05/08/2021, 01/21/2021 Influenza Vaccine (#1) 2022 , 01/14/2021, 11/06/2019, Additional history exists Cervical Cancer Screening 12/09/2024 12/09/2021 DTaP,Tdap,and Td Vaccines (1 0 - Td or Tdap) 05/01/2032 05/01/2022, 12/28/2018, 07/01/2017, Additional history exists Hepatitis B Vaccines Completed 10/09/1994, 03/10/1994, 01/06/1994 Care Teams R&D Lab Technician Relationship Specialty Start Date End Date None Reported, Pcp PCP - General Family Medicine 01/24/22
--- OUTSIDE RECORDS SUMMARY | 2023-03-22 08:19 | XMS_ITS | Referral Summary ---
Author Name Unknown Organization [facility] Address [address] [place] [address] Care Team Providers Care Sleep Lab Technologist Name Role Phone None Reported, Pcp Primary Care Provider Unavail able Source Comments Patient records contain information from all sites at [facility]. For routine questions regarding patient records, call [phone] during business hours, M-F 8:00 AM - 5:00 PM Central Time. Record requests for emergency care only can be directed to [phone] at any time.[facility] Allergies Active Allergy Reactions Criticality Noted Date [...] evere Without Psychotic Features 07/09/2011 [facility] Migraine Headache 03/05/2008 Immunizations [...] Comments Blood Pressure 96/60 01/24/2022 12:45 PM INSTITUTIONAL CUSTODIAN Pulse 75 01/24/2022 1:00 PM INSTITUTIONAL CUSTODIAN Temperature 36.6 ??C (97.9 ??F) 01/24/2022 11:[address] Respiratory Rate 18 01/24/2022 11:15 AM INSTITUTIONAL CUSTODIAN Oxygen Saturation 98% 01/24/2022 1:00 PM INSTITUTIONAL CUSTODIAN Inhaled Oxygen Concentration - - Weight 80.3 kg (177 lb 0.5 oz) 01/24/2022 11:11 AM INSTITUTIONAL CUSTODIAN Height - - Body Mass Index - - Plan of Treatment Not on file Care Teams Sleep Lab Technologist Relationship Specialty Start Date End Date None Reported, Pcp PCP - General Family Medicine 01/24/22
--- OUTSIDE RECORDS SUMMARY | 2023-03-22 08:19 | XMS_ITS ---
Author Name Unknown Organization [facility] Address [address] [place] [address] Care Team Providers Care Material Worker Name Role Phone Unavailable Unavailable Unavailable Surgery Details Not on file Complications Check Surgery Details section. Procedure Estimated Blood Loss Check Surgery Details section. Procedure Findings Check Surgery Details section. Procedure Specimens Taken Check Surgery Details section.
--- NOTE | 2023-03-22 08:38 | ED_ITS ---
HPI - General Adult General Date Seen: 03/22/23 Chief complaint: Flank Pain Stated complaint: Back pain Time Seen by Provider: 03/22/23 08:00 Source: patient Mode of arrival: ambulatory Limitations: no limitations History of Present Illness HPI narrative: Patient is a 27-year-old woman who presents for evaluation of left flank pain. She says that this woke her up this morning but as she got up and got moving it got worse. When she bent over to black pickler her 8-month-old it became more sharp and stabbing. It is in the left flank, she says she also feels that in the middle of her back and is starting to feel little bit on the other side. No pain that radiates into the legs. No abdominal pain currently although she says since having a baby 8 months ago she has been having more abdominal cramping than she is used to. She has had 1 period since having her baby, she has a Nexplanon and denies suspicion of . She denies urinary symptoms, fevers, nausea or vomiting. She has had a little bit of cold and flu symptoms past few days although those are improved. She says her kids have all been sick. She denies cough or difficulty breathing. Pain is not pleuritic. It machado s hurt more when she moves. Related Data Previous Rx's Medication Instructions Recorded compress.stocking,knee,reg,med #2 ea 04/17/22 ibuprofen 600 mg tablet 600 mg PO Q6H PRN #60 tabs 06/30/22 escitalopram oxalate 5 mg tablet 5 mg PO QDAY #60 tabs 07/17/22 (Lexapro) ketorolac 10 mg tablet 10 mg PO Q8H 5 days #15 tabs 11/30/22 methylprednisolone 4 mg tablets in See Rx Instructions PO .COMPLEX 11/30/22 a dose pack (Medrol (Doroteo)) #21 ea Allergies Allergy/AdvReac Type Severity Reaction Status Date / Time hydrocodone AdvReac Mild Vomiting Verified 11/30/22 14:47 Review of Systems Status of ROS: Reports: 10 or more systems reviewed and unremarkable except as noted in History and below [facility] Medical History hemorrhage ?O72.1 - Other immediate hemorrhage (ICD-10) Normal spontaneous vaginal delivery ?O80 - Encounter for full-term uncomplicated delivery (ICD-10) History of hyperthyroidism ?Z86.39 - Personal history of other endocrine, nutritional and metabolic disease (ICD-10) Teeth decayed ?K02.9 - Dental caries, unspecified (ICD-10) Migraine ?G43.909 - Migraine, unspecified, not intractable, without status migrainosus (ICD-10) Depression ?F32.A - Depression, unspecified (ICD-10) TANNER (generalized anxiety disorder) ?F41.1 - Generalized anxiety disorder (ICD-10) Sacroiliac joint disease ?M53.3 - Sacrococcygeal disorders, not elsewhere classified (ICD-10) Surgical History [place] teeth extracted ?K08.409 - Partial loss of teeth, unspecified cause, unspecified class (ICD- 10) History of ankle surgery ?Z98.890 - Other specified postprocedural states (ICD-10) Family History Father High blood pressure Stroke, Onset Age: 42 Mother High blood pressure Diabetes Thyroid disease Social History Smoking Status: Never smoker Do you use any of these nicotine containing products: None Second hand tobacco smoke exposure: No How often do you have a drink containing alcohol: monthly or less AUDIT-C Alcohol total score: 1 Non-prescribed substance use: former substance user Non-prescribed substance use details: Stopped Marijuana usage in November Little interest or pleasure in doing things: more than half the days Feeling down, depressed, or hopeless: several days Exam Narrative: Exam Narrative: Vital signs as noted above. In general, an alert, well-appearing patient. Head: Normocephalic, atraumatic. Eyes: Pupils are equal reactive. Extraocular movements are full. Conjunctivae are normal. ENT: Mucous membranes are moist. Throat is normal. Neck: Supple without lymphadenopathy. Heart: Regular rate and rhythm. No murmur or rub. Lungs: Clear bilaterally. No increased work of breathing, crackles or wheezes. Abdomen: Soft and nontender. No organomegaly. Back: No CVA tenderness. She has reproducible tenderness to palpation along the left flank and lateral chest wall. No rash. Extremities: Well perfused. No edema. No calf tenderness. Pulses intact. Neurologic: Patient is alert and oriented to person and place. Speech is fluent. Face is symmetric. Moves all extremities equally. Affect: Normal. Skin: Warm and dry. Well perfused. Const: Vital Signs, click to edit/add: Vital Signs - 24 hr 03/22/23 07:51 Temperature 98.0 F Pulse Rate [Pulse Oximeter] 67 Respiratory Rate 18 Blood Pressure [Le ft Upper Arm] 139/79 Pulse Oximetry 97 Oxygen Delivery Me thod Room Air Documenting provider has reviewed patient's vital signs: yes Course Course ED Course: Will give some IM Toradol, check labs and urine. Diagnostic considerations include musculoskeletal back pain, kidney stone, pyelonephritis, pulmonary embolism, pneumonia, shingles, among others. Labs are notable for normal white blood cell count of 9.8, normal diff. D-dimer is less than 0.27. Metabolic panel is normal, creatinine is 0.6. CRP minimally elevated at 1.9. Urinalysis is notable for moderate squames, 2-5 red cells and 5-10 white blood cells. test is negative. Discussed all this with her. I do think her symptoms are more likely to be muscular, but with a slightly abnormal urinalysis I recommended that we cover with an antibiotic for now while we await culture results. I have recommended ibuprofen and Tylenol, I did prescribe Flexeril as well as Macrobid from [facility]. Ice or heat as needed. Primary care follow-up this week if not gradually improving. Return to the ER at any time for acute worsening or new symptoms such as fever, vomiting, abdominal pain etcetera. Given the reproducible nature of her pain and worsening with movement etcetera, I think this is unlikely to be a kidney stone. If pain is persistent, image could be considered. Vital Signs Vital signs: Initial Vital Signs Temperature 98.0 F 03/22/23 07:51 Temperature Source Temporal Artery Scan 03/22/23 07:51 Pulse Rate 67 03/22/23 07:51 Pulse Rhythm Regular 03/22/23 07:51 Respiratory Rate 18 03/22/23 07:51 Blood Pressure 139/79 03/22/23 07:51 Blood Pressure Mean 99 03/22/23 07:51 Blood Pressure Position Supine 03/22/23 07:51 Pulse Oximetry 97 03/22/23 07:51 Oxygen Delivery Method Room Air 03/22/23 07:51 Vital Signs Temperature 98.0 F 03/22/23 07:51 Pulse Rate 67 03/22/23 07:51 Respiratory Rate 18 03/22/23 07:51 Blood Pressure 139/79 03/22/23 07:51 Pulse Oximetry 97 03/22/23 07:51 Oxygen Delivery Method Room Air 03/22/23 07:51 Temperature 98.0 F 03/22/23 07:51 Pulse Rate 67 03/22/23 07:51 Respiratory Rate 18 03/22/23 07:51 Blood Pressure 139/79 03/22/23 07:51 Pulse Oximetry 97 03/22/23 07:51 Oxygen Delivery Method Room Air 03/22/23 07:51 Medications Administered Medications: Discontinued Medications Generic Name Dose Route Start Last Admin Trade Name Freq PRN Reason Stop Dose Admin Ketorolac Tromethamine 30 mg 03/22/23 08:12 03/22/23 08:42 Ketorolac 30 Mg/Ml Inj IM 03/22/23 08:13 30 mg ONCE ONE Administration Medical Decision Making Lab Data Labs: Lab Results 03/22/23 03/22/23 03/22/23 Range/Units 08:02 08:47 Unknown WBC 9.83 (4.50-11.00) K/uL RBC 4.44 (4.00-5.20) m/uL Hgb 13.2 (12.0-16.0) gm/dL Hct 40.4 (33.0-51.0) % MCV 91 (80-100) fL MCH 30 (26-34) pg MCHC 33 (32-36) gm/dL RDW Coeff of Melissa 12.5 (11.5-15.5) % Plt Count 329 (140-440) K/uL Neut % (Auto) 68.6 (42.0-72.0) % Lymph % (Auto) 23.3 (20-44) % [place] % (Auto) 4.8 (0.0-11.0) % Eos % (Auto) 2.8 (0.0-7.0) % Baso % (Auto) 0.2 (0.0-3.0) % Neut # (Auto) 6.74 (1.7-7.0) K/uL Lymph # (Auto) 2.29 (0.90-2.90) K/uL [place] # (Auto) 0.50 (0.00-0.90) K/UL Eos # (Auto) 0.28 (0.00-0.50) K/uL Baso # (Auto) 0.02 (0.00-0.30) K/uL Abs Immat Gran (auto) 0.03 (0.00-0.30) K/uL Imm/Tot Granulo (auto) 0.3 % D-Dimer Quant (PE/DVT) < 0.27 (0.00-0.50) ug/ml Sodium 140 (135-149) mmol/L Potassium 4.8 (3.6-5.1) mmol/L Chloride 106 (96-114) mmol/L Carbon Dioxide 26 (20-32) mmol/L Anion Gap 8 (7-15) mEq/L BUN 11 (5-24) mg/dL Creatinine 0.6 (0.5-1.5) mg/dL Estimated Creat Clear 124.49 Estimated GFR 125 ml/min Glucose 107 (60-115) mg/dL Calcium 9.7 (8.4-10.6) mg/dL C-Reactive Protein 1.9 H (0.5-1.0) mg/dL Urine Color Yellow (Yellow) Urine Appearance Cloudy A (Clear) Urine pH 6.0 (5.0-8.5) Ur Specific [place] 1.020 (1.000-1.030) Urine Protein Negative (Negative) Urine Glucose (UA) Negative (Negative) Urine Ketones Negative (Negative) Urine Blood 2+ A (Negative) Urine Nitrite Negative (Negative) Urine Bilirubin Negative (Negative) Urine Urobilinogen 0.2 (0.2-1.0) Ur Leukocyte Esterase Trace A (Negative) Urine RBC 2-5 A (0-2) Urine WBC 5-10 A (0-5) Ur Squamous Epith Cells Moderate A (None-Few) Urine Bacteria Many A (None) Urine HCG, Qual Negative (Negative) Discharge Plan Discharge Clinical Impression: Left flank pain Patient Disposition: Home, Self-Care Condition: Improved Instructions: Flank Pain (ED) Additional Instructions: Ibuprofen 400 mg plus Tylenol 1000 mg 3 times daily with food. Muscle relaxer needed. Antibiotic as prescribed. If your urine culture does not grow specific organism, the antibiotic can be discontinued. If you have severe worsening pain, new symptoms such as fever, vomiting, abdominal pain etcetera, return any time for re-evaluation. Otherwise, would recommend clinic follow-up for recheck this week if not gradually improving. Prescriptions: No Action (DME) compress.stocking,knee,reg,med Misc See Rx Instructions .Route Qty: 2 0RF Rx Instructions: As directed escitalopram oxalate [Lexapro] 5 mg tablet 5 mg PO QDAY Qty: 60 0RF Rx Instructions: May increase to 10 mg after 7-10 days as needed. ibuprofen 600 mg Tablet 600 mg PO Q6H PRNQty: 60 0RF ketorolac 10 mg tablet 10 mg PO Q8H 5 Days Qty: 15 0RF methylprednisolone [Medrol (Doroteo)] 4 mg tablets,dose pack See Rx Instructions .ROUTE .COMPLEX Qty: 21 0RF Rx Instructions: orally per package directions Follow Up/Referrals: Provider,Not a Local [Primary Care Provider] - Stand Alone Forms: [employer]th Info Instructions
[2023-03-22] MEDS: KETOROLAC 30 MG/ML inj IM (08:42)
[2023-03-22 08:59] LABS: Basophils Absolute Auto 0.02 K/uL (0.00-0.30); Basophils Percent Auto 0.2 % (0.0-3.0); Eosinophils Absolute Auto 0.28 K/uL (0.00-0.50); Eosinophils Percent Auto 2.8 % (0.0-7.0); Hematocrit 40.4 % (33.0-51.0); Hemoglobin* 13.2 gm/dL (12.0-16.0); Immature Granulocytes Abs Auto 0.03 K/uL (0.00-0.30); Immature Granulocytes Pct Auto 0.3 %; Lymphocytes Absolute Auto 2.29 K/uL (0.90-2.90); Lymphocytes Percent Auto 23.3 % (20-44); Mean Corpuscular HGB Conc 33 gm/dL (32-36); Mean Corpuscular Hemoglobin 30 pg (26-34); Mean Corpuscular Volume 91 fL (80-100); Monocytes Percent Auto 4.8 % (0.0-11.0); Neutrophils Absolute Auto 6.74 K/uL (1.7-7.0); Neutrophils Percent Auto 68.6 % (42.0-72.0); Platelet Count* 329 K/uL (140-440); RDW Coefficient of Variation % 12.5 % (11.5-15.5); Red Blood Count 4.44 m/uL (4.00-5.20); Slide Review Reflex No; White Blood Count* 9.83 K/uL (4.50-11.00)
[2023-03-22 09:09] LABS: Chloride* 106 mmol/L (96-114); Potassium* 4.8 mmol/L (3.6-5.1); Sodium* 140 mmol/L (135-149)
[2023-03-22 09:12] LABS: Creatinine* 0.6 mg/dL (0.5-1.5); Est. Creatinine Clearance* 124.49; Estimated Glomerular Filt Rate 125 ml/min
[2023-03-22 09:13] LABS: Anion Gap 8 mEq/L (7-15); Blood Urea Nitrogen* 11 mg/dL (5-24); Calcium* 9.7 mg/dL (8.4-10.6); Carbon Dioxide* 26 mmol/L (20-32); Glucose* 107 mg/dL (60-115)
[2023-03-22 09:16] LABS: C Reactive Protein* 1.9 mg/dL (0.5-1.0)
[2023-03-22 09:26] LABS: D Dimer Quantitative* < 0.27 ug/ml (0.00-0.50)
[2023-03-22 09:38] LABS: Ur HCG Qualitative* Negative (Negative)
== END 2023-03-22 09:57 | disposition home or self-care (01) ==
PROVIDERS: Emergency Provider Emergency Medicine
DX: M54.9 Dorsalgia, unspecified (principal)
CPT/HCPCS: 36415; 80048; 81001; 81025; 85025; 85379; 86140; 87086; 87186; 96372; 99283; 99284; J1885

== ENCOUNTER 2023-09-07 08:27 | Outpatient (CLI) | payer OTHER, SELFPAY ==
--- OUTSIDE RECORDS SUMMARY | 2023-09-07 08:33 | XMS_ITS | Clinical Summary ---
Author Organization [facility] Address [address] [place] [address] Care Team Providers Care Pit Boss Name Role Phone None Reported, Pcp Primary Care Provider Unavail able Source Comments Patient records contain information from all sites at [facility]. For routine questions regarding patient records, call [phone] during business hours, M-F 8:00 AM - 5:00 PM Central Time. Record requests for emergency care only can be directed to [phone] at any time.[facility] Allergies Active Allergy Reactions Criticality Noted [...] evere Without Psychotic Features 07/09/2011 [facility] Migraine Headache 03/05/2008 Immunizations Name Administration Dates Next Due 4vHPV (discontinued) 01/03/2013,11/04/2012,08/13 DTP / Hib 10/09/1994,03/10/1994,01/06/1994 DTaP (Infanrix, [employer]edia) 10/17/1998 HepA Adult 02/02/2013,08/14/2011 HepB, Unspecified 10/09/1994,03/10/1994,01/06/19 94 Influenza TIV (IM) 11/04/2012 Influenza, Unspecified 11/02/2017 MCV4 (Menactra)(Discontinued) 09/26/2004 MCV4 (Menveo) 02/16/2014 MMR 10/17/1998,10/09/1994 PPSV23 [...] Comments Blood Pressure 96/60 01/24/2022 12:45 PM INBOUND SALES CONSULTANT Pulse 75 01/24/2022 1:00 PM INBOUND SALES CONSULTANT Temperature 36.6 ??C (97.9 ??F) 01/24/2022 11:[address] Respiratory Rate 18 01/24/2022 11:15 AM INBOUND SALES CONSULTANT Oxygen Saturation 98% 01/24/2022 1:00 PM INBOUND SALES CONSULTANT Inhaled Oxygen Concentration - - Weight 80.3 kg (177 lb 0.5 oz) 01/24/2022 11:11 AM INBOUND SALES CONSULTANT Height - - Body Mass Index - [...] season) 2022 05/08/2021, 01/21/2021 Influenza Vaccine (#1) 2023 , 01/14/2021, 11/06/2019, Additional history exists Cervical Cancer Screening 12/09/2024 12/09/2021 DTaP,Tdap,and Td Vaccines (1 0 - Td or Tdap) 05/01/2032 05/01/2022, 12/28/2018, 07/01/2017, Additional history exists Hepatitis B Vaccines Completed 10/09/1994, 03/10/1994, 01/06/1994 Care Teams Pit Boss Relationship Specialty Start Date End Date None Reported, Pcp PCP - General Family Medicine 01/24/22
--- OUTSIDE RECORDS SUMMARY | 2023-09-07 08:33 | XMS_ITS | Referral Summary ---
Author Organization [facility] Address [address] [place] [address] Care Team Providers Care Malt House Supervisor Name Role Phone None Reported, Pcp Primary Care Provider Unavail able Source Comments Patient records contain information from all sites at [facility]. For routine questions regarding patient records, call [phone] during business hours, M-F 8:00 AM - 5:00 PM Central Time. Record requests for emergency care only can be directed to [phone] at any time.[facility] Allergies Active Allergy Reactions Criticality [...] evere Without Psychotic Features 07/09/2011 [facility] Migraine Headache 03/05/2008 Immunizations [...] Comments Blood Pressure 96/60 01/24/2022 12:45 PM BRAKE LINER Pulse 75 01/24/2022 1:00 PM BRAKE LINER Temperature 36.6 ??C (97.9 ??F) 01/24/2022 11:[address] Respiratory Rate 18 01/24/2022 11:15 AM BRAKE LINER Oxygen Saturation 98% 01/24/2022 1:00 PM BRAKE LINER Inhaled Oxygen Concentration - - Weight 80.3 kg (177 lb 0.5 oz) 01/24/2022 11:11 AM BRAKE LINER Height - - Body Mass Index - - Plan of Treatment Not on file Care Teams Malt House Supervisor Relationship Specialty Start Date End Date None Reported, Pcp PCP - General Family Medicine 01/24/22
--- OUTSIDE RECORDS SUMMARY | 2023-09-07 08:33 | XMS_ITS ---
Author Organization [facility] Address [address] [place] [address] Care Team Providers Care Spinning Bath Patroller Name Role Phone Unavailable Unavailable Unavailable Surgery Details Not on file Complications Check Surgery Details section. Procedure Estimated Blood Loss Check Surgery Details section. Procedure Findings Check Surgery Details section. Procedure Specimens Taken Check Surgery Details section.
== END 2023-09-07 08:28 | disposition home or self-care (01) ==
PROVIDERS: Visit Provider Family Medicine
DX: Z13.228 Encounter for screening for other metabolic disorders (principal); Z13.220 Encounter for screening for lipoid disorders; Z13.29 Encounter for screening for other suspected endocrine disorder; Z13.21 Encounter for screening for nutritional disorder; Z13.0 Encounter for screening for diseases of the blood and blood-forming organs and certain disorders involving the immune mechanism
CPT/HCPCS: 80053; 80061; 82607; 82728; 83540; 83550; 84443

== ENCOUNTER 2024-01-18 18:16 | Outpatient (CLI) | payer OTHER, SELFPAY ==
--- OUTSIDE RECORDS SUMMARY | 2024-01-19 11:38 | XMS_ITS | Clinical Summary ---
Author Organization [facility] Address [address] [place] [address] Care Team Providers Care Tire Curer Name Role Phone None Reported, Pcp Primary Care Provider Unavail able Source Comments Patient records contain information from all sites at [facility]. For routine questions regarding patient records, call [phone] during business hours, M-F 8:00 AM - 5:00 PM Central Time. Record requests for emergency care only can be directed to [phone] at any time.[facility] Allergies Active Allergy Reactions Criticality Noted [...] 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 07/09/2011 Overview (01/24/2022): [facility] Migraine Headache 03/05/2008 Immunizations [...] Date Recorded Dental: Regular Dentist Unknown 01/25/20 22 Comments Unknown Sex and Gender Information Value Date Recorded Sex Assigned at Not on file Legal Sex Female 11:54 AM STRATEGY PLANNING CONSULTANT Gender Identity Not on file Sexual Orientation Not on file Last Filed Vital Signs Vital Sign Reading Time Taken Comments Blood Pressure 96/60 01/24/2022 12:45 PM STRATEGY PLANNING CONSULTANT Pulse 75 01/24/2022 1:00 PM STRATEGY PLANNING CONSULTANT Temperature 36.6 C (97.9 F) 01/24/2022 11:15 AM STRATEGY PLANNING CONSULTANT Respiratory Rate 18 01/24/2022 11:15 AM STRATEGY PLANNING CONSULTANT Oxygen Saturation 98% 01/24/2022 1:00 PM STRATEGY PLANNING CONSULTANT Inhaled Oxygen Concentration - - Weight 80.3 kg (177 lb 0.5 oz) 01/24/2022 11:11 AM STRATEGY PLANNING CONSULTANT Height - - Body Mass Index - - Plan of Treatment Health Maintenance Due Date Last Done Comments Depression Monitoring (PHQ-9) 1993 HIV Screening 1993 Hepatitis C Screening 1993 Tobacco Cessation counseling 1993 HPV Vaccines (3 - 3-dose series) 03/28/2013 01/03/2013, 11/04/2012, 08/14/2011 Pneumococcal vaccine (0-64 y ears) (2 of 2 - PCV) 01/14/2022 01/14/2021 Depression Monitoring (PHQ-9 for quality tracking) 02/22/2023 COVID-19 Vaccine (3 - 2023-2 5 season) 2023 05/08/2021, 01/21/2021 Influenza Vaccine (#1) 2023 , 01/14/2021, 11/06/2019, Additional history exists Cervical/Vaginal Cancer Screening 12/09/2024 022 DTaP,Tdap,and Td Vaccines (1 0 - Td or Tdap) 05/01/2032 05/01/2022, 12/28/2018, 07/01/2017, Additional history exists Hepatitis B Vaccines Completed 10/09/1994, 03/10/1994, 01/06/1994 IPV Vaccines Completed 10/17/1998, 09/22, 03/10/1994, Additional history exists Care Teams Tire Curer Relationship Specialty Start Date End Date None Reported, Pcp PCP - General Family Medicine 01/24/22
--- OUTSIDE RECORDS SUMMARY | 2024-01-19 11:38 | XMS_ITS | Referral Summary ---
Author Organization [facility] Address [address] [place] [address] Care Team Providers Care Fish House Worker Name Role Phone None Reported, Pcp Primary Care Provider Unavail able Source Comments Patient records contain information from all sites at [facility]. For routine questions regarding patient records, call [phone] during business hours, M-F 8:00 AM - 5:00 PM Central Time. Record requests for emergency care only can be directed to [phone] at any time.[facility] Allergies Active Allergy Reactions Criticality Noted Date [...] Without Psychotic Features 07/09/2011 Overview (01/24/2022): [facility] Migraine Headache 03/05/2008 Immunizations Name [...] on file Legal Sex Female 11:54 AM ELECTRIC WELDER HELPER Gender Identity Not on file Sexual Orientation Not on file Last Filed Vital Signs Vital Sign Reading Time Taken Comments Blood Pressure 96/60 01/24/2022 12:45 PM ELECTRIC WELDER HELPER Pulse 75 01/24/2022 1:00 PM ELECTRIC WELDER HELPER Temperature 36.6 C (97.9 F) 01/24/2022 11:15 AM ELECTRIC WELDER HELPER Respiratory Rate 18 01/24/2022 11:15 AM ELECTRIC WELDER HELPER Oxygen Saturation 98% 01/24/2022 1:00 PM ELECTRIC WELDER HELPER Inhaled Oxygen Concentration - - Weight 80.3 kg (177 lb 0.5 oz) 01/24/2022 11:11 AM ELECTRIC WELDER HELPER Height - - Body Mass Index - - Plan of Treatment Not on file Care Teams Fish House Worker Relationship Specialty Start Date End Date None Reported, Pcp PCP - General Family Medicine 01/24/22
--- OUTSIDE RECORDS SUMMARY | 2024-01-19 11:38 | XMS_ITS ---
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 Procedure Estimated Blood Loss Check Surgery Details section. Procedure Findings Check Surgery Details section. Procedure Specimens Taken Check Surgery Details section.
== END 2024-01-18 18:17 | disposition home or self-care (01) ==
LOC: NFLDREF 01-19 11:36
PROVIDERS: PCP Family Medicine; Referring Provider Family Medicine; Visit Provider Nurse Practitioner Family
DX: R82.90 Unspecified abnormal findings in urine (principal); M54.9 Dorsalgia, unspecified; R10.9 Unspecified abdominal pain
CPT/HCPCS: 87086

== ENCOUNTER 2024-04-22 05:46 | Emergency (ER) | payer OTHER, SELFPAY ==
[2024-04-22 06:00] VITALS: BP 128/83; PULSE 82; RESP 16; TEMP 36.2; O2SAT 98; BMI 35.4
--- NOTE | 2024-04-22 07:22 | ED.LOWEXIN ---
HPI - Extremity Injury (Lower) General Date Seen: 04/22/24 Chief Complaint: Extremity Pain/Injury, Lower Stated Complaint: twisted L ankle Time Seen by Provider: 04/22/24 06:10 Source: patient Mode of arrival: ambulatory Limitations: no limitations History of Present Illness HPI Narrative: Patient is a 28-year-old female who slipped going down some stairs two days ago and rolled her left ankle. She was not evaluated initially and has continued to walk on the ankle. She worked overnight at [employer] and comes in at the end of her shift for evaluation because she is still having pain. The swelling has improved. She has had a previous reconstruction on her right ankle. Related Data Home Medications ?Medication ?Instructions ?Recorded ?Confirmed modafinil 100 mg tablet 100 mg PO DAILY 10/06/23 04/05/24 escitalopram oxalate 20 mg tablet 20 mg PO DAILY 04/05/24 04/05/24 Previous Rx's ?Medication ?Instructions ?Recorded ibuprofen 800 mg tablet 800 mg PO TID #30 tabs 10/12/23 Allergies Allergy/AdvReac Type Severity Reaction Status Date / Time hydrocodone AdvReac Mild Vomiting Verified 04/22/24 06:03 Review of Systems Narrative: Review of systems is outlined above otherwise noted to be negative. [facility] Medical History (Updated 04/22/24 @ 06:30 by Jesus Riggins MD) Elevated white blood cell count ?D72.829 - Elevated white blood cell count, unspecified (ICD-10) Back pain ?M54.9 - Dorsalgia, unspecified (ICD-10) Marijuana use ?F12.90 - Cannabis use, unspecified, uncomplicated (ICD-10) Tobacco abuse ?Z72.0 - Tobacco use (ICD-10) Migraine with aura ?G43.109 - Migraine with aura, not intractable, without status migrainosus (ICD-10) Wears dentures ?Z97.2 - Presence of dental prosthetic device (complete) (partial) (ICD-10) Chronic pain of right ankle ?M25.571 - Pain in right ankle and joints of right foot (ICD-10) ?G89.29 - Other chronic pain (ICD-10) Chronic anemia ?D64.9 - Anemia, unspecified (ICD-10) Manic depression ?F31.9 - Bipolar disorder, unspecified (ICD-10) TANNER (generalized anxiety disorder) ?F41.1 - Generalized anxiety disorder (ICD-10) Depression ?F32.A - Depression, unspecified (ICD-10) Edentulous ?K08.109 - Complete loss of teeth, unspecified cause, unspecified class (ICD-10) PTSD (post-traumatic stress disorder) ?F43.10 - Post-traumatic stress disorder, unspecified (ICD-10) Varicose veins of both lower extremities ?I83.93 - Asymptomatic varicose veins of bilateral lower extremities (ICD-10) History of recurrent UTI (urinary tract infection) ?Z87.440 - Personal history of urinary (tract) infections (ICD-10) Normal spontaneous vaginal delivery ?O80 - Encounter for full-term uncomplicated delivery (ICD-10) History of hyperthyroidism ?Z86.39 - Personal history of other endocrine, nutritional and metabolic disease (ICD-10) Sacroiliac joint disease ?M53.3 - Sacrococcygeal disorders, not elsewhere classified (ICD-10) Surgical History (Updated 09/07/23 @ 08:44 by Kassandra Brambila MD) Nexplanon in place (07/2022) ?Z97.5 - Presence of (intrauterine) contraceptive device (ICD-10) [place] teeth extracted ?K08.409 - Partial loss of teeth, unspecified cause, unspecified class (ICD-10) History of ankle surgery ?Z98.890 - Other specified postprocedural states (ICD-10) Family History (Updated 09/07/23 @ 08:23 by Kassandra Brambila MD) Father Stroke, Onset Age: 44 Depression Mother Diabetes Depression PCOS (polycystic ovarian syndrome) Sister Depression PCOS (polycystic ovarian syndrome) Brother Depression ADHD (attention deficit hyperactivity disorder) Paternal Grandmother Breast cancer, Onset Age: 70 Maternal Grandfather Prostate cancer Social History (Updated 09/07/23 @ 15:57 by Shelby Pryor ~ CTA) Narrative: , works overnight at [employer], 3 children, lives in [place] Cigarette smoker 5 cigarettes a day, history of 6 pack years Rare use of alcohol Smokes marijuana 2 to 3 times a week No regular exercise What is your current living situation?: I presently have a place to live Problems where you live: pests, such as bugs, ants, or mice In the past 12 months, utilities in danger of being shut off: no In past 12 months, lack of transportation kept you from medical appts, meetings, work, or getting things needed for daily living: no In the past 12 mos, have been you worried that your food would run out before you had money to buy more?: sometimes true In the past 12 mos, the food you bought just didn't last and you didn't have money to buy more?: sometimes true Smoking Status: Never smoker Do you use any of these nicotine containing products: None Second hand tobacco smoke exposure: No How often do you have a drink containing alcohol: monthly or less AUDIT-C Alcohol total score: 1 Non-prescribed substance use: former substance user Non-prescribed substance use details: Stopped Marijuana usage in November How often does anyone, including family, friends and others, physically hurt you: never How often does anyone, including family, friends and others, insult or talk down to you: sometimes How often does anyone, including family, friends and others, threaten you with harm: never How often does anyone, including family, friends and others, scream or curse at you: rarely Health Related Social Needs: Inadequate housing (Z59.1), food insecurity (Z59.41) and Other personal risk factors, not elsewhere classified (Z91.89) Exam Narrative: Exam Narrative: Objective: Vitals noted. She has some soft tissue swelling to the lateral aspect of the left ankle. No medial tenderness. No ligamentous laxity. Anterior drawer sign is negative. No 5th metatarsal tenderness. Const: Vital Signs, click to edit/add: Vital Signs - 24 hr 04/22/24 06:00 Temperature 97.2 F L Pulse Rate [Right Pulse Oximeter] 82 Respiratory Rate 16 Blood Pressure [Ri ght Upper Arm] 128/83 Pulse Oximetry 98 Oxygen Delivery Me thod Room Air Course Course ED Course: Patient seen and examined. X-ray of the left ankle is negative. She is placed in a soft ankle brace. Vital Signs Vital signs: Initial Vital Signs Temperature 97.2 F L 04/22/24 06:00 Temperature Source Temporal Artery Scan 04/22/24 06:00 Pulse Rate 82 04/22/24 06:00 Pulse Rhythm Regular 04/22/24 06:00 Pulse Strength 3+ Normal 04/22/24 06:00 Respiratory Rate 16 04/22/24 06:00 Blood Pressure 128/83 04/22/24 06:00 Blood Pressure Mean 98 04/22/24 06:00 Blood Pressure Position Sitting 04/22/24 06:00 Pulse Oximetry 98 04/22/24 06:00 Oxygen Delivery Method Room Air 04/22/24 06:00 Vital Signs Temperature 97.2 F L 04/22/24 06:00 Pulse Rate 82 04/22/24 06:00 Respiratory Rate 16 04/22/24 06:00 Blood Pressure 128/83 04/22/24 06:00 Pulse Oximetry 98 04/22/24 06:00 Oxygen Delivery Method Room Air 04/22/24 06:00 Temperature 97.2 F L 04/22/24 06:00 Pulse Rate 82 04/22/24 06:00 Respiratory Rate 16 04/22/24 06:00 Blood Pressure 128/83 04/22/24 06:00 Pulse Oximetry 98 04/22/24 06:00 Oxygen Delivery Method Room Air 04/22/24 06:00 Discharge Plan Discharge Clinical Impression: Left ankle sprain Patient Disposition: Home, Self-Care Condition: Stable Instructions: Ankle Sprain (DC) Additional Instructions: Rest, ice, elevate, Ibuprofen 600 mg three times daily. Splint for the next 5-7 days for support. Follow up with your PCP if no better in a week. Prescriptions: No Action modafinil 100 mg tablet 100 mg PO DAILY escitalopram oxalate 20 mg tablet 20 mg PO DAILY ibuprofen 800 mg tablet 800 mg PO TID Qty: 30 0RF Rx Instructions: Take with food Follow Up/Referrals: Kassandra Brambila MD [Primary Care Provider] - Stand Alone Forms: [employer] Info Instructions
== END 2024-04-22 06:53 | disposition home or self-care (01) ==
LOC: ED 06:45
PROVIDERS: Emergency Provider Family Medicine; PCP Family Medicine
DX: S93.402A Sprain of unspecified ligament of left ankle, initial encounter (principal); W10.9XXA Fall (on) (from) unspecified stairs and steps, initial encounter; X50.1XXA Overexertion from prolonged static or awkward postures, initial encounter
CPT/HCPCS: 73610; 99281; 99283

== ENCOUNTER 2024-05-24 08:45 | Outpatient (RCR) | payer OTHER, SELFPAY ==
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
--- NOTE | 2024-10-04 14:42 | PC.SOCIAL ---
Social work consult: automobile body worker reached out to the pt this afternoon after receiving a social service consult on the pt from Dr. Brambila in the clinic for financial insecurity. Pt states that Dr. Brambila wants her to see a psychiatrist for her mental health medications and referred her to Jr Tinsley in [place]. Pt states that last time she saw Jr she was charged $200.00 for the visit, which is not affordable to her. Pt stopped taking her mental health medications because she could not afford to keep going to these appointments with Jr for referrals for $200.00 a visit. automobile body worker suggested to the pt that she ask if he is willing to do a payment plan at all. Pt also shared that she is not apposed to finding a new psychiatrist that will accept her insurance if the cost/co-pays are going to be less than $200.00. automobile body worker to follow back up with the pt next week.
== END 2024-09-21 23:59 | disposition home or self-care (01) ==
PROVIDERS: PCP Family Medicine; Visit Provider Family Medicine
DX: M25.531 Pain in right wrist (principal); Z51.89 Encounter for other specified aftercare
CPT/HCPCS: 97033; 97035; 97140; 97165

== ENCOUNTER 2024-10-02 08:36 | Outpatient (CLI) | payer OTHER, SELFPAY ==
--- NOTE | 2024-10-06 13:14 | PC.SOCIAL ---
Social work consult: This worker spoke to the pt today again via phone and the pt asked about [facility] services. maintenance and repair worker told her about [email or web address] and [facility] in [facility] that both offer these services and usually will take a self referral. Pt was thankful for the information. Social work to follow-up as needed.
== END 2024-10-02 08:37 | disposition home or self-care (01) ==
LOC: NFLDREF 10-05 14:49
PROVIDERS: PCP Family Medicine; Referring Provider Family Medicine; Visit Provider Family Medicine
DX: R73.03 Prediabetes (principal); R53.82 Chronic fatigue, unspecified; Z13.6 Encounter for screening for cardiovascular disorders
CPT/HCPCS: 80053; 80061